=== PATIENT | male | born 1960 | race Caucasian/White ===

== ENCOUNTER 2016-10-10 19:44 | Observation (INO) | payer OTHER ==
[2016-10-10] MEDS ORDERED: Zofran 4 MG/2 ML VIAL IV ONE (20:05)
[2016-10-10] MEDS ORDERED: Nitrostat 0.4 MG (ED) SL ONE ×2 (20:05→20:14)
[2016-10-10] MEDS ORDERED: Zofran 4 MG/2 ML VIAL ONE (20:13)
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
[2016-10-10] MEDS ORDERED: Sodium Chloride 0.9% 1000 ML 1,000 ML ONE (20:14)
[2016-10-10] MEDS ORDERED: Sodium Chloride 0.9% 1000 ML 1,000 ML IV SCH ×2 (20:15→23:15)
[2016-10-10 20:18] LABS: BASOPHIL % 0.2 % (0.0-0.4); Eosinophil % 0.8 % (0.00-5.0); Granulocytes % 70.1 % (36.0-66.0); Mean Cell Volume 96.1 fl (78-100); Mean Corpuscular Hemoglobin 31.2 pg (26-32); Mean Platelet Volume 10.5 fl (6-9.5); Monocytes % 8.9 % (0.0-12.0); Platelet Count 270 K/mm3 (150-450); Red Blood Count 4.58 M/mm3 (4.1-5.6); Red Cell Distribution Width 14.2 % (11.5-14.0); White Blood Count 9.9 K/mm3 (4.0-10.5)
[2016-10-10 20:55] LABS: PROTIME 11.3 SECONDS (8.83-12.87)
[2016-10-10 21:00] LABS: ALBUMIN 3.6 g/dL (3.4-5.0); ANION GAP 11.6 MEQ/L (5-15); BILIRUBIN,TOTAL 1.1 mg/dL (0.2-1.0); Carbon Dioxide 24.7 mEq/L (21-32); Potassium 3.8 mEq/L (3.5-5.1); Total Protein 7.2 gm/dL (6.4-8.2)
[2016-10-10] MEDS ORDERED: NITRO-BID 2% UD PACKETS TOP ONE (21:05)
[2016-10-10] MEDS ORDERED: Phenergan 25 MG INJ IM ONE (21:05)
[2016-10-10] MEDS ORDERED: PROTONIX 40 MG IV IV ONE ×2 (21:06→21:18)
[2016-10-10] MEDS ORDERED: Phenergan 25 MG INJ ONE (21:18)
[2016-10-10] MEDS ORDERED: NITRO-BID 2% UD PACKETS ONE (21:18)
[2016-10-10] MEDS ORDERED: MAALOX ES 30 ML UNIT DOSE PO PRN (22:07)
[2016-10-10] MEDS ORDERED: TYLENOL 325 MG PO PRN (22:07)
[2016-10-10] MEDS ORDERED: Zofran 4 MG/2 ML VIAL IV PRN (22:07)
[2016-10-10] MEDS ORDERED: Nitrostat 0.4 MG Tablet SL PRN (22:07)
[2016-10-10] MEDS ORDERED: NovoLOG Insulin SQ PRN (22:07)
[2016-10-10] MEDS ORDERED: Senokot-S Tablet PO PRN (22:07)
[2016-10-10] MEDS ORDERED: SYNTHROID 100 MCG PO SCH (22:15)
[2016-10-11] MEDS: Phenergan 25 MG INJ IV PRN ×3 (01:43→10:55)
[2016-10-11] MEDS ORDERED: Ambien 10 MG PO SCH (01:45)
[2016-10-11] MEDS ORDERED: NITRO-BID 2% UD PACKETS TOP SCH (06:00)
--- NOTE | 2016-10-11 08:54 | XRAY ---
Indication: Chest pain. Comparison: April 27, 2015. Portable chest demonstrates new subtle left base infiltrate/atelectasis. Remaining right lung and heart unremarkable. Bony thorax intact again with osteopenia, degenerative changes, sternotomy wires, and partially visualized right humeral orthopedic rods.
[2016-10-11] MEDS ORDERED: Lomotil PO PRN (09:27)
[2016-10-11] MEDS ORDERED: MEPERIDINE HCL PO PRN (09:27)
[2016-10-11] MEDS ORDERED: ONDANSETRON HCL PO PRN (09:27)
[2016-10-11] MEDS ORDERED: PHENERGAN 25 MG PO PRN (09:27)
[2016-10-11] MEDS ORDERED: NON-FORMULARY ITEM (Prochlorperazine Maleate 10 Mg [Compazine 10 Mg] 10 MG) PO PRN (09:27)
[2016-10-11] MEDS ORDERED: NovoLOG Insulin SQ SCH (09:30)
[2016-10-11 09:32] LABS: TROPONIN 0.093 ng/ml (0.000-0.056)
[2016-10-11] MEDS ORDERED: ZOFRAN ODT 4 MG PO PRN (09:40)
[2016-10-11] MEDS ORDERED: Compazine 5 MG PO PRN (09:41)
[2016-10-11] MEDS ORDERED: MEDICATION INTERVENTION MC PRN (09:48)
[2016-10-11] MEDS ORDERED: Lasix 40 MG PO SCH (10:00)
[2016-10-11] MEDS ORDERED: REGLAN SOLUTION 5 MG/5 ML PO SCH (10:00)
[2016-10-11] MEDS ORDERED: Toprol Xl 50 MG PO SCH (10:00)
[2016-10-11] MEDS ORDERED: Pepcid 20 MG PO SCH (10:00)
[2016-10-11] MEDS ORDERED: NON-FORMULARY ITEM (Ranitidine Hcl [Zantac] 150 MG) PO SCH (10:00)
[2016-10-11] MEDS ORDERED: PLAVIX 75 MG Tablet PO SCH (10:00)
[2016-10-11] MEDS ORDERED: SYNTHROID 112 MCG PO SCH (10:00)
[2016-10-11] MEDS ORDERED: Toprol-Xl 25MG Tablets PO SCH (10:00)
[2016-10-11] MEDS ORDERED: Cozaar 50 MG PO SCH (10:00)
[2016-10-11] MEDS ORDERED: Zetia 10 MG PO SCH (10:00)
[2016-10-11] MEDS: MORPHINE SULFATE 2 MG INJ IV PRN ×2 (10:11→12:23)
--- NOTE | 2016-10-11 10:22 | HP ---
CHIEF COMPLAINT: Nausea and vomiting. HISTORY OF PRESENT ILLNESS: The patient is a 56 year-old white male patient who reports that he has been having trouble with epigastric pain and nausea for the past two weeks. He had seen me last and had set up gallbladder ultrasound. He saw his staff field engineer on Monday who again wanted the ultrasound performed and made no changes otherwise. The patient reports that since that Monday visit he has had retching, vomiting with no change in his bowels. Over the past three days he finally presented himself to the emergency room and was admitted to the hospital for further evaluation and management. PAST MEDICAL/SURGICAL HISTORY: Significant for coronary artery bypass grafting. He reports a stent ten times. He has diabetes mellitus type 1. He has had surgeries on his left femur and right shoulder. HOME MEDICATIONS: Plavix 75 mg daily, Lomotil PRN, [place] at night, Synthroid 100 mcg daily, losartan 25 mg a day, Demerol 100 mg at night PRN for pain, metoprolol 50 mg daily, niacin 500 mg, pantoprazole 40 mg, Mirapex 0.5 mg at night, Zantac 150 mg daily, Zetia 10 mg a day. ALLERGIES: CODEINE, LEVAQUIN, PENICILLIN, SULFA. PHYSICAL EXAMINATION: Revealed a mildly obese white male patient currently nauseated holding onto emesis bag which is empty. His vital signs showed O2 saturation 92% on room air. His temperature 97.5F, pulse 70, respiratory rate 16, blood pressure 137/70. HEENT: Normocephalic, atraumatic. Pupils equal round reactive to light. Extraocular movements intact. He is wearing oxygen per nasal cannula. His oropharynx is dry. NECK: Supple without lymphadenopathy, thyromegaly or JVD. CHEST: Clear to auscultation. HEART: He has a trigeminy rhythm when he first came in and otherwise he has been in sinus rhythm. ABDOMEN: Soft, somewhat tender in the epigastric region. No palpable masses were felt. EXTREMITIES: Without clubbing, cyanosis or edema. NEUROLOGIC: The patient is alert and oriented x3. No focal deficits are noted. LAB DATA AND TESTS: The patient's EKG showed the trigeminy, left axis deviation is present. The chest x-ray showed atelectasis versus infiltrate in the left base. His laboratory studies otherwise had shown international normalized ratio to be 1.0. His metabolic panel showed a nonfasting glucose of 223, BUN 12, creatinine 1.49. Electrolytes and liver enzymes were normal. Amylase and lipase were not elevated. His CBC is normal with hemoglobin 14.3, white blood cell count 9,900, PLT count 270,000. He had intermediately high troponin at 0.029 on admission with up to 0.056 being normal in our lab. ASSESSMENT: A patient with persistent nausea and vomiting. He is being admitted for IV fluid hydration and further evaluation. We will obtain serial enzymes on his troponins to rule out any cardiac reasons for his problem as well. He will be maintained on his usual home medications if he is able to take them p.o. We will place him on sliding scale coverage for his insulin since he has been unable to eat.
--- NOTE | 2016-10-11 10:52 | XRAY ---
Indication: Pain, nausea, and vomiting 6-8 weeks. Two-dimensional right upper quadrant abdominal sonogram performed. Comparison: None Sonogram technically difficult due to patient body habitus. Pancreas not well seen. Gallbladder appears normally distended without gallstones, wall thickening, or pericholecystic fluid. Common bile duct measures 2.7 mm. No intrahepatic biliary distention. Visuals portions of the liver homogeneous. No ascites. Right kidney measures 11.8 cm in length and appears sonographically normal. Impression: Limited exam due to body habitus. Pancreas not well seen. Remaining gallbladder sonogram is negative.
[2016-10-11 11:26] VITALS: BP 142/65; PULSE 75; O2SAT 97
[2016-10-11] MEDS ORDERED: Reglan 10 MG PO SCH (11:30)
[2016-10-11] MEDS ORDERED: Tricor 145 MG PO SCH (22:00)
[2016-10-11] MEDS ORDERED: FENOFIBRIC ACID 45 MG PO SCH (22:00)
[2016-10-11] MEDS ORDERED: Protonix 40MG Tablet PO SCH (22:00)
[2016-10-11] MEDS ORDERED: NON-FORMULARY ITEM (Pramipexole Di-Hcl [Mirapex] 1 MG) PO SCH (22:00)
[2016-10-11] MEDS ORDERED: Mirapex 0.5 MG Tablet PO SCH (22:00)
--- NOTE | 2016-10-14 13:01 | ECHO ---
THIS REPORT WAS AMENDED ON 10/17/16. DATE: 10/11/16 INDICATION: Chest pain. The echocardiogram is technically difficult due to body habitus. The left ventricle is normal in size at 5.1 cm. Left ventricular apex is not well visualized. The septum is thickened at 1.4 cm. The left ventricular posterior wall thickness is increased at 1.7 cm. The left ventricular systolic function is mildly decreased with an ejection fraction calculated at 48%. There is diffuse hypokinesis present. The right ventricle is not well visualized. The left atrium is moderately dilated with the dimension of 5.0 cm. The interatrial septum is intact. The right atrium is normal in size. The aortic valve opens well and is a trileaflet valve. There is mitral valvular calcification associated with mild mitral regurgitation present. There is mild tricuspid regurgitation with the right ventricular systolic pressure being calculated to be normal. The pulmonic valve is not well visualized. The aortic root is normal at 3.4 cm. There is no pericardial effusion present. IMPRESSION: 1. TECHNICALLY DIFFICULT ECHOCARDIOGRAM. 2. MILD LEFT VENTRICULAR SYSTOLIC DYSFUNCTION. 3. MODERATE LEFT ATRIAL DILATATION. 4. MODERATE ASYMMETRIC LEFT VENTRICULAR HYPERTROPHY. 5. MILD TRICUSPID REGURGITATION. 6. MILD MITRAL REGURGITATION.
== END 2016-10-11 13:55 ==
LOC: ED 19:44 → MED SURG 22:36
PROVIDERS: ADMIT Family Medicine; ATTEND Family Medicine
DX: R07.9 Chest pain, unspecified (principal); R11.2 Nausea with vomiting, unspecified; E10.9 Type 1 diabetes mellitus without complications; I25.810 Atherosclerosis of coronary artery bypass graft(s) without angina pectoris; I10 Essential (primary) hypertension; R79.89 Other specified abnormal findings of blood chemistry; Z79.899 Other long term (current) drug therapy
CPT/HCPCS: 36000; 36415; 71010; 76705; 80053; 80061; 82150; 82962; 83690; 83721; 84484; 85025; 85610; 93005; 93268; 93306; 94760; 96360; 96361; 96372; 96374; 96375; 99285; G0378; J2270; J2405; J2550; A9270-GY

== ENCOUNTER 2020-08-18 14:25 | Emergency (ER) | payer MEDICAID ==
[2020-08-18] MEDS ORDERED: DUONEB 0.5-3 MG/3 ml Neb IH ONE ×2 (14:57→17:11)
--- NOTE | 2020-08-18 15:20 | ERPHSYRPT ---
- History of Present Illness Time Seen by Provider: 08/18/20 14:44 Source: patient Exam Limitations: no limitations Patient Subjective Stated Complaint: Pt states "I have had this problem before, but my wanted me to come get checked. I cough for about 30 minutes after I eat or drink anything. I have had to have my esophagus stretched before and I think I need it again." Triage Nursing Assessment: Pt presented alert and oriented X 3, skin pwd. Pt ambulates with a slow shuffling gait, assisted by a cane. Pt stated he gets assistance with anything he does. Pt in no apparent respiratory distress. PT speaks in clear full sentences. Physician History: 60 years old male with multiple medical problems including artery disease status post CABG, diabetes mellitus, hypertension, congestive heart failure who was re cently discharged from [facility] for uncontrolled blood sugar presented in the ER with almost 1 week history of increasing cough. Patient reports he does have history of esophageal stricture needing stretching in the past and for almost 1 week he has episodes/bouts of coughing lasting for almost 30 minutes after eating or drinking to the point that he feels as if he is choking. No increasing shortness of breath than usual. No chest pain palpitations. Denies any abdominal pain. Does have bilateral lower extremity swelling which is not any worse than usual. Denies any fever or chills. Timing/Duration: week(s), intermittent, worse Cough Quality/Degree: moderate, dry cough Possible Cause: occasional episodes Modifying Factors: Improves With: other (Eating) Associated Symptoms: cough, shortness of breath (Chronic) Allergies/Adverse Reactions: levofloxacin [From Levaquin] Allergy (Verified 10/10/16 19:53) Penicillins Allergy (Verified 10/10/16 19:53) Sulfa (Sulfonamide Antibiotics) Allergy (Verified 10/10/16 19:53) Home Medications: Clopidogrel Bisulfate 75 mg [PLAVIX 75 MG Tablet] 75 mg PO DAILY 04/27/15 [History] Diphenoxylate HCl/Atropine [Lomotil 2.5-0.025 mg Tablet] 1 each PO DAILY PRN PRN 04/27/15 [History] Niacin 500 mg [Niaspan 500 mg] 500 mg PO DAILY 04/27/15 [History] Furosemide [Lasix] 80 mg PO BID 10/11/16 [History] Insulin Aspart [NovoLOG Insulin] 1 unit SQ UD 10/11/16 [History] Levothyroxine Sodium 112 Mcg [Synthroid 112 Mcg] 112 mcg PO DAILY 10/11/16 [History] Metoclopramide HCl 5 mg/5 ml [Reglan Solution 5 mg/5 ml] 10 mg PO QID 10/11/16 [History] Ondansetron HCl [Zofran] 12 mg PO Q4H PRN PRN 10/11/16 [History] Pramipexole Di-HCl [Mirapex] 1 mg PO HS 10/11/16 [History] Promethazine HCl 25 mg [Phenergan 25 mg] 25 mg PO Q8H PRN PRN 10/11/16 [History] ALPRAZolam [Alprazolam] 1 mg PO DAILY 08/18/20 [History] Aspirin 81 mg PO DAILY 08/18/20 [History] Atorvastatin Calcium [Lipitor] 40 mg PO DAILY 08/18/20 [History] Doxycycline Hyclate 100 mg [Vibramycin 100 MG] 100 mg PO DAILY 08/18/20 [History] Glucagon [Baqsimi] 3 mg NS DAILY PRN 08/18/20 [History] Isosorbide Mononitrate 30 mg [Imdur 30 MG] 30 mg PO DAILY 08/18/20 [History] Potassium Chloride [Klor-Con M10] 10 meq PO DAILY 08/18/20 [History] Tamsulosin HCl 0.4 mg [Flomax 0.4 MG] 0.4 mg PO DAILY 08/18/20 [History] Hx Tetanus, Diphtheria Vaccination/Date Given: Yes Hx Influenza Vaccination/Date Given: Yes Hx Pneumococcal Vaccination/Date Given: Yes Immunizations Up to Date: Yes Travel Risk - International Travel Have you traveled outside of the country in past 3 weeks: No - Coronavirus Screening Are you exhibiting any of the following symptoms?: No Close contact with a COVID-19 positive Pt in past 14-21 Days: No - Vaccine Status Have you recieved a Covid-19 vaccination: Yes 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: [employer] - Vaccination Dates Date of 2cond Vaccination (if applicable): 05/2020 - Review of Systems Constitutional: No Symptoms Eyes: No Symptoms Ears, Nose, & Throat: Sinus Drainage Respiratory: Cough Cardiac: Edema Abdominal/Gastrointestinal: No Symptoms Genitourinary Symptoms: No Symptoms Skin: No Symptoms Neurological: No Symptoms Psychological: No Symptoms Endocrine: No Symptoms Hematologic/Lymphatic: No Symptoms Immunological/Allergic: No Symptoms - Past Medical History Pertinent Past Medical History: Yes Neurological History: No Pertinent History ENT History: No Pertinent History Cardiac History: Angina, Arrhythmia, Coronary Artery Disease, High Cholesterol, Hypertension Respiratory History: No Pertinent History Endocrine Medical History: Diabetes Type I Musculoskeletal History: Arthritis, Fractures GI Medical History: Irritable Bowel History: No Pertinent History Psycho-Social History: Anxiety Male Reproductive Disorders: No Pertinent History Other Medical History: R GREAT TOE FRACTURE. - Past Surgical History Past Surgical History: Yes Neuro Surgical History: No Pertinent History Cardiac: CABG, Cardiac Catheterization Respiratory: No Pertinent History Gastrointestinal: Appendectomy Genitourinary: No Pertinent History Musculoskeletal: No Pertinent History Male Surgical History: No Pertinent History Other Surgical History: LAZER TREATMENTS IN R EYE, LEFT FEMUR AND RIGHT SHOULDER SURG - Social History Smoking Status: Never smoker Exposure to second hand smoke: No Drug Use: none Patient Lives Alone: No - Nursing Vital Signs Nursing Vital Signs: Initial Vital Signs Temperature 97.3 F 08/18/20 14:37 Pulse Rate 60 08/18/20 14:37 Respiratory Rate 20 08/18/20 14:37 Blood Pressure 104/43 08/18/20 14:37 O2 Sat by Pulse Oximetry 94 L 08/18/20 14:37 Pain Scale Pain Intensity 0 - Physical Exam General Appearance: no apparent distress, alert, anxiety Eye Exam: PERRL/EOMI, eyes nml inspection Ears, Nose, Throat Exam: TMs normal, pharyngeal erythema Neck Exam: normal inspection, non-tender, supple, full range of motion Respiratory Exam: normal breath sounds, lungs clear Cardiovascular Exam: regular rate/rhythm, normal heart sounds Gastrointestinal/Abdomen Exam: soft, normal bowel sounds, No tenderness Back Exam: normal inspection, normal range of motion Extremity Exam: normal inspection, normal range of motion, pedal edema Neurologic Exam: alert, oriented x 3, cooperative Skin Exam: normal color SpO2 Interpretation: normal SpO2: 94 O2 Delivery: Room Air - Course EKG Interpreted by Me: RATE (80), NORMAL AXIS, Left Bundle Branch Block, Other (PVCs, paced rhythm) Ordered Tests: Active Orders 24 hr Category Date Time Status 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 STAT Care 08/18/20 14:58 Completed EKG-ER Only STAT Care 08/18/20 14:57 Completed CHEST 1 VIEW (PORTABLE) Stat Exams 08/18/20 14:58 Completed BLOOD CULTURE Stat Lab 08/18/20 15:21 Received CBC W DIFF Stat Lab 08/18/20 14:57 Completed CMP Stat Lab 08/18/20 15:11 Completed MAGNESIUM Stat Lab 08/18/20 15:11 Completed NT PRO BNP Stat Lab 08/18/20 15:11 Completed TROPONIN Q3H Lab 08/18/20 15:11 Completed UA W/RFX UR CULTURE Stat Lab 08/18/20 16:27 Completed Medication Summary Discontinued Medications Generic Name Dose Route Start Last Admin Trade Name Freq PRN Reason Stop Dose Admin Albuterol/Ipratropium 3 ml 08/18/20 14:57 08/18/20 17:12 Duoneb 0.5-3 Mg/3 Ml Neb IH 08/18/20 14:58 3 ml STAT ONE Administration Albuterol/Ipratropium Confirm 08/18/20 17:11 Duoneb 0.5-3 Mg/3 Ml Neb Administered 08/18/20 17:12 Dose 3 ml IH .STK-MED ONE Lab/Rad Data: Laboratory Result Diagrams 08/18/20 14:57 08/18/20 15:11 Laboratory Results 08/18/20 08/18/20 08/18/20 Range/Units 16:27 15:11 15:11 WBC (4.0-10.5) K/mm3 RBC (4.1-5.6) M/mm3 Hgb (12.5-18.0) gm/dl Hct (42-50) % MCV (78-100) fl MCH (26-32) pg MCHC (32-36) g/dl RDW (11.5-14.0) % Plt Count (150-450) K/mm3 MPV (7.5-11.0) fl Gran % (36.0-66.0) % Eos # (Auto) (0-0.5) Absolute Lymphs (auto) (1.0-4.6) Absolute Monos (auto) (0.0-1.3) Lymphocytes % (24.0-44.0) % Monocytes % (0.0-12.0) % Eosinophils % (0.00-5.0) % Basophils % (0.0-0.4) % Absolute Granulocytes (1.4-6.9) Basophils # (0-0.4) Sodium 133 L (137-145) mmol/L Potassium 4.0 (3.5-5.1) mmol/L Chloride 95 L (98-107) mmol/L Carbon Dioxide 29 (22-30) mmol/L Anion Gap 12.7 (5-15) MEQ/L BUN 17 (9-20) mg/dL Creatinine 1.48 H (0.66-1.25) mg/dL Estimated GFR 51.2 ML/MIN Glucose 167 H (74-106) mg/dL Calcium 8.6 (8.4-10.2) mg/dL Magnesium 2.0 (1.6-2.3) mg/dL Total Bilirubin 1.20 (0.2-1.3) mg/dL AST 26 (17-59) U/L ALT 25 (0-50) U/L Alkaline Phosphatase 249 H (38-126) U/L Troponin I < 0.012 (0.000-0.034) ng/mL NT-Pro-B Natriuret Pep 597 (0-900) pg/mL Serum Total Protein 6.7 (6.3-8.2) g/dL Albumin 3.6 (3.5-5.0) g/dL Urine Color YELLOW (YELLOW) Urine Appearance CLEAR (CLEAR) Urine pH 6.0 (5-6) Ur Specific [place] 1.008 (1.005-1.025) Urine Protein NEGATIVE (Negative) Urine Ketones NEGATIVE (NEGATIVE) Urine Blood NEGATIVE (0-5) Minh/ul Urine Nitrite NEGATIVE (NEGATIVE) Urine Bilirubin NEGATIVE (NEGATIVE) Urine Urobilinogen NEGATIVE (0-1) mg/dL Ur Leukocyte Esterase NEGATIVE (NEGATIVE) Urine WBC (Auto) NONE (0-5) /HPF Urine RBC (Auto) NONE (0-2) /HPF U Epithel Cells (Auto) NONE (FEW) /HPF Urine Bacteria (Auto) NONE (NEGATIVE) /HPF Urine Culture Reflexed NO (NO) Urine Glucose NEGATIVE (NEGATIVE) mg/dL 08/18/20 Range/Units 14:57 WBC 15.6 H (4.0-10.5) K/mm3 RBC 3.92 L (4.1-5.6) M/mm3 Hgb 11.9 L (12.5-18.0) gm/dl Hct 38.4 L (42-50) % MCV 98.0 (78-100) fl MCH 30.4 (26-32) pg MCHC 31.0 L (32-36) g/dl RDW 15.1 H (11.5-14.0) % Plt Count 442 (150-450) K/mm3 MPV 10.0 (7.5-11.0) fl Gran % 85.0 H (36.0-66.0) % Eos # (Auto) 0.13 (0-0.5) Absolute Lymphs (auto) 1.05 (1.0-4.6) Absolute Monos (auto) 1.15 (0.0-1.3) Lymphocytes % 6.7 L (24.0-44.0) % Monocytes % 7.4 (0.0-12.0) % Eosinophils % 0.8 (0.00-5.0) % Basophils % 0.1 (0.0-0.4) % Absolute Granulocytes 13.29 H (1.4-6.9) Basophils # 0.02 (0-0.4) Sodium (137-145) mmol/L Potassium (3.5-5.1) mmol/L Chloride (98-107) mmol/L Carbon Dioxide (22-30) mmol/L Anion Gap (5-15) MEQ/L BUN (9-20) mg/dL Creatinine (0.66-1.25) mg/dL Estimated GFR ML/MIN Glucose (74-106) mg/dL Calcium (8.4-10.2) mg/dL Magnesium (1.6-2.3) mg/dL Total Bilirubin (0.2-1.3) mg/dL AST (17-59) U/L ALT (0-50) U/L Alkaline Phosphatase (38-126) U/L Troponin I (0.000-0.034) ng/mL NT-Pro-B Natriuret Pep (0-900) pg/mL Serum Total Protein (6.3-8.2) g/dL Albumin (3.5-5.0) g/dL Urine Color (YELLOW) Urine Appearance (CLEAR) Urine pH (5-6) Ur Specific [place] (1.005-1.025) Urine Protein (Negative) Urine Ketones (NEGATIVE) Urine Blood (0-5) Minh/ul Urine Nitrite (NEGATIVE) Urine Bilirubin (NEGATIVE) Urine Urobilinogen (0-1) mg/dL Ur Leukocyte Esterase (NEGATIVE) Urine WBC (Auto) (0-5) /HPF Urine RBC (Auto) (0-2) /HPF U Epithel Cells (Auto) (FEW) /HPF Urine Bacteria (Auto) (NEGATIVE) /HPF Urine Culture Reflexed (NO) Urine Glucose (NEGATIVE) mg/dL - Progress Progress: improved, re-examined Air Movement: good Progress Note: 08/18/20 16:49 60 years old is evaluated for repeated bouts of coughing. Patient is not short of breath and maintaining oxygen saturation around 97% on room air without any signs of distress. Has white count of 15, chemistry profile at baseline. Normal troponins. Patient is currently on doxycycline for foot/leg infection. Chest x-ray showed questionable new infiltrative process in the right lower lung. I have recommended IV antibiotic and observation admission but patient does not want to stay in the hospital at all. Patient states "I am doing fine and want to go home, will return if anything worsens". I would start him on Z- Ramirez as patient is allergic to multiple other stuff. I would also give him albuterol inhaler and recommended continue with PPIs and outpatient follow-up with his GI as his cough has some element of esophageal strictures. Discussed signs symptoms of worsening needing return to ER which he seems understanding Antibiotics given: Yes Counseled pt/family regarding: lab results, diagnosis, need for follow-up, rad results - Departure Departure Disposition: Home Clinical Impression: Bronchitis, GERD with esophagitis Condition: Stable Critical Care Time: No Referrals: VINCE FONG [Primary Care Provider] - (1-2 days for reevaluation) Instructions: Acute Bronchitis Additional Instructions: Follow-up with your primary care for reevaluation. Also follow-up with your GI for possible restretching of your esophagus. Take soft/pured diet to avoid obstruction/aspiration. Use inhaler as needed. Return to ER for worsening cough or if develop fever chills/shortness of breath. Prescriptions: PANTOPRAZOLE 40 mg Tablet [Protonix 40MG Tablet] 40 mg PO QAM #30 tab Albuterol 8 gm Mdi Hfa [Ventolin Hfa MDI] 8 gm IH Q4H #1 [email or web address] Azithromycin 250 mg [Zithromax 250 MG TABLET] 250 mg PO ZPACK #6 tablet
[2020-08-18 15:29] LABS: Absolute Neutrophil Ct (ANC) 13.29 (1.4-6.9); BASOPHIL % 0.1 % (0.0-0.4); Basophil (Absolute #) 0.02 (0-0.4); Eosinophil % 0.8 % (0.00-5.0); Eosinophil (Absolute #) 0.13 (0-0.5); Hematocrit 38.4 % (42-50); Hemoglobin 11.9 gm/dl (12.5-18.0); Lymphocyte (Absolute #) 1.05 (1.0-4.6); Lymphocytes % 6.7 % (24.0-44.0); Mean Corpuscular Hemoglobin 30.4 pg (26-32); Monocyte (Absolute #) 1.15 (0.0-1.3); Monocytes % 7.4 % (0.0-12.0); Platelet Count 442 K/mm3 (150-450); Red Blood Count 3.92 M/mm3 (4.1-5.6); Red Cell Distribution Width 15.1 % (11.5-14.0); White Blood Count 15.6 K/mm3 (4.0-10.5)
[2020-08-18 15:52] LABS: ALBUMIN 3.6 g/dL (3.5-5.0); ANION GAP 12.7 MEQ/L (5-15); BILIRUBIN,TOTAL 1.2 mg/dL (0.2-1.3); Calcium 8.6 mg/dL (8.4-10.2); Creatinine 1 1.48 mg/dL (0.66-1.25); EST GLOMERULAR FILTRATION RATE 51.2 ML/MIN; Total Protein 6.7 g/dL (6.3-8.2)
--- NOTE | 2020-08-18 16:26 | XRAY ---
Indication: Cough. Comparison: October 10, 2016. Portable chest demonstrates new right base infiltrate versus atelectasis. Remaining left lung unremarkable. Heart not enlarged again with CABG surgery and new left dual-lead pacemaker. Bony thorax intact again with osteopenia, degenerative changes, and partially visualized right humeral orthopedic rods. Impression: New right base infiltrate versus atelectasis.
[2020-08-18 16:37] LABS: Appearance CLEAR (CLEAR); Bilirubin NEGATIVE (NEGATIVE); Blood NEGATIVE Ery/ul (0-5); Glucose NEGATIVE (NEGATIVE); Ketones NEGATIVE (NEGATIVE); Leukocyte Esterase NEGATIVE (NEGATIVE); Nitrite NEGATIVE (NEGATIVE); Protein,Urine Dip NEGATIVE (Negative); Specific Gravity 1.008 (1.005-1.025); Urobilinogen NEGATIVE mg/dL (0-1)
[2020-08-18 17:20] VITALS: BP 108/54; PULSE 72
[2020-08-19 00:59] VITALS: O2SAT 94
== END 2020-08-18 17:31 | disposition home or self-care (01) ==
LOC: ED 14:25
DX: J40 Bronchitis, not specified as acute or chronic (principal); K21.00 Gastro-esophageal reflux disease with esophagitis, without bleeding
CPT/HCPCS: 36415; 71045; 80053; 81001; 83735; 83880; 84484; 85025; 87040; 93005; 93041; 94640; 99284; A9270-GY

== ENCOUNTER 2020-11-14 14:01 | Emergency (ER) | payer MEDICAID ==
[2020-11-14 14:50] LABS: Absolute Neutrophil Ct (ANC) 6.56 (1.4-6.9); BASOPHIL % 0.2 % (0.0-0.4); Basophil (Absolute #) 0.02 (0-0.4); Eosinophil % 0.7 % (0.00-5.0); Eosinophil (Absolute #) 0.07 (0-0.5); Hematocrit 42.3 % (42-50); Hemoglobin 13.7 gm/dl (12.5-18.0); Lymphocyte (Absolute #) 1.76 (1.0-4.6); Lymphocytes % 18.6 % (24.0-44.0); Mean Cell Volume 95.7 fl (78-100); Mean Corpuscular Hgb Concent. 32.4 g/dl (32-36); Mean Platelet Volume 9.7 fl (7.5-11.0); Monocyte (Absolute #) 1.06 (0.0-1.3); Monocytes % 11.2 % (0.0-12.0); Neutrophil % 69.3 % (36.0-66.0); Platelet Count 231 K/mm3 (150-450); Red Blood Count 4.42 M/mm3 (4.1-5.6); Red Cell Distribution Width 14.7 % (11.5-14.0); White Blood Count 9.5 K/mm3 (4.0-10.5)
--- NOTE | 2020-11-14 14:58 | ERPHSYRPT ---
- History of Present Illness Time Seen by Provider: 11/14/20 14:07 Source: patient, EMS Exam Limitations: no limitations Patient Subjective Stated Complaint: "I took 25 extra units of my fast acting to kill myself because my is driving me nuts. She has been a nurse for years but she acts likes she doesn't know how to use this pump.". pt disconnected pump at home and left it there prior to coming in. Triage Nursing Assessment: pt to ED by EMS c/o SI. pt gave self 25 extra units of novalog in attempt to end his life. pt states he was suicidal at that time but is not now. "I just want my sugar addressed then I want to go." RN explained to pt that since he attempted to end his life that must also be addressed. pt became angry after he was told he could not sign out of the hospital d/t SI. pt states "Thats fine I will just do it again when I get home then whenever I do get out of here." RN attempted to continue to assess pt and pt states "I am not answering questions." Physician History: 60 years old male with multiple medical problems including coronary artery disease status post CABG, diabetes mellitus insulin-dependent, hypertension, hyperlipidemia, anxiety presented in the ER by EMS after he took 25 units of Humalog almost 30 minutes prior to arrival. Patient reports his insulin pump is not working properly and his who is an RN is driving him nuts and he is frustrated and took 25 extra pills to make an end of his life. This was the initial patient statement but later on he states that he did it because he is frustrated and does not want to kill himself. Patient also reported to RN that once he is out of the hospital he will do it again. His blood sugar before he took insulin was in 400s and currently in 160s. He denies any chest pain palpitations or shortness of breath. Denies overdose on any other medications. Denies any psychiatric admissions in the past. Timing/Duration: today Severity: moderate Allergies/Adverse Reactions: levofloxacin [From Levaquin] Allergy (Verified 11/14/20 14:31) Penicillins Allergy (Verified 11/14/20 14:31) Sulfa (Sulfonamide Antibiotics) Allergy (Verified 11/14/20 14:31) Home Medications: Clopidogrel Bisulfate 75 mg [PLAVIX 75 MG Tablet] 75 mg PO DAILY 04/27/15 [History] Diphenoxylate HCl/Atropine [Lomotil 2.5-0.025 mg Tablet] 1 each PO DAILY PRN PRN 04/27/15 [History] Niacin 500 mg [Niaspan 500 mg] 500 mg PO DAILY 04/27/15 [History] Furosemide [Lasix] 40 mg PO TID 10/11/16 [History] Insulin Aspart [NovoLOG Insulin] 1 unit SQ UD 10/11/16 [History] Levothyroxine Sodium 112 Mcg [Synthroid 112 Mcg] 150 mcg PO DAILY 10/11/16 [History] Ondansetron HCl [Zofran] 12 mg PO Q4H PRN PRN 10/11/16 [History] Pramipexole Di-HCl [Mirapex] 1 mg PO HS 10/11/16 [History] Promethazine HCl 25 mg [Phenergan 25 mg] 25 mg PO Q4H PRN PRN 10/11/16 [History] ALPRAZolam [Alprazolam] 1 mg PO DAILY 08/18/20 [History] Aspirin 81 mg PO DAILY 08/18/20 [History] Atorvastatin Calcium [Lipitor] 40 mg PO DAILY 08/18/20 [History] Glucagon [Baqsimi] 3 mg NS DAILY PRN 08/18/20 [History] Isosorbide Mononitrate 30 mg [Imdur 30 MG] 30 mg PO DAILY 08/18/20 [History] Tamsulosin HCl 0.4 mg [Flomax 0.4 MG] 0.4 mg PO DAILY 08/18/20 [History] ALPRAZolam [Alprazolam] 0.5 mg PO Q8H PRN 11/14/20 [History] Benzonatate 100 mg PO TID PRN 11/14/20 [History] Diphenhydramine HCl 25 mg [Benadryl 25 mg Capsule] 50 mg PO Q4H 11/14/20 [History] Docusate Sodium 100 mg [Colace 100 MG] 100 mg PO BID 11/14/20 [History] Ergocalciferol (Vitamin D2) [Vitamin D2] 1.25 mg PO WEEKLY 11/14/20 [History] Famotidine [Pepcid] 40 mg PO DAILY 11/14/20 [History] Metoclopramide HCl 10 mg [Reglan 10 MG] 10 mg PO TID 11/14/20 [History] Nitroglycerin 0.4 mg SL DAILY PRN 11/14/20 [History] carvediloL [Carvedilol] 25 mg PO BID 11/14/20 [History] Hx Tetanus, Diphtheria Vaccination/Date Given: Yes Hx Influenza Vaccination/Date Given: Yes Hx Pneumococcal Vaccination/Date Given: Yes Immunizations Up to Date: Yes Travel Risk - International Travel Have you traveled outside of the country in past 3 weeks: No ("I am not answering questions.") - Coronavirus Screening Are you exhibiting any of the following symptoms?: No Close contact with a COVID-19 positive Pt in past 14-21 Days: No - Vaccine Status Have you recieved a Covid-19 vaccination: No ("I am not answering questions.") 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: [employer] - Vaccination Dates Date of 2cond Vaccination (if applicable): 05/2020 - Review of Systems Constitutional: No Symptoms Eyes: No Symptoms Ears, Nose, & Throat: No Symptoms Respiratory: No Symptoms Cardiac: No Symptoms Abdominal/Gastrointestinal: No Symptoms Genitourinary Symptoms: No Symptoms Musculoskeletal: No Symptoms Skin: No Symptoms Neurological: No Symptoms Psychological: Anxiety, Suicidal Ideations, No Hallucinations, No Memory Loss Endocrine: No Symptoms Hematologic/Lymphatic: No Symptoms Immunological/Allergic: No Symptoms - Past Medical History Pertinent Past Medical History: Yes Neurological History: No Pertinent History ENT History: No Pertinent History Cardiac History: Angina, Arrhythmia, Coronary Artery Disease, High Cholesterol, Hypertension Respiratory History: No Pertinent History Endocrine Medical History: Diabetes Type I Musculoskeletal History: Arthritis, Fractures GI Medical History: Irritable Bowel History: No Pertinent History Psycho-Social History: Anxiety Male Reproductive Disorders: No Pertinent History Other Medical History: R GREAT TOE FRACTURE. - Past Surgical History Past Surgical History: Yes Neuro Surgical History: No Pertinent History Cardiac: CABG, Cardiac Catheterization Respiratory: No Pertinent History Gastrointestinal: Appendectomy Genitourinary: No Pertinent History Musculoskeletal: No Pertinent History Male Surgical History: No Pertinent History Other Surgical History: LAZER TREATMENTS IN R EYE, LEFT FEMUR AND RIGHT SHOULDER SURG - Social History Smoking Status: Never smoker Exposure to second hand smoke: No Drug Use: none Patient Lives Alone: No - Nursing Vital Signs Nursing Vital Signs: Initial Vital Signs Temperature 97.2 F 11/14/20 14:09 Pulse Rate 69 11/14/20 14:09 Respiratory Rate 18 11/14/20 14:09 Blood Pressure 142/63 11/14/20 14:09 O2 Sat by Pulse Oximetry 97 11/14/20 14:09 Pain Scale Pain Intensity 0 - Physical Exam General Appearance: no apparent distress, alert Eye Exam: PERRL/EOMI Ears, Nose, Throat Exam: normal ENT inspection, pharynx normal Neck Exam: normal inspection, non-tender, supple, full range of motion Respiratory Exam: normal breath sounds, lungs clear Cardiovascular Exam: regular rate/rhythm, tachycardia, edema Gastrointestinal/Abdomen Exam: soft, No tenderness Extremity Exam: normal inspection, normal range of motion, pedal edema Neurologic Exam: alert, oriented x 3, cooperative, board handler II-XII nml as tested, nml cerebellar function, sensation nml, No normal mood/affect (Depressed), No motor deficits, No sensory deficit Skin Exam: normal color SpO2 Interpretation: normal SpO2: 97 O2 Delivery: Room Air - Course EKG Interpreted by Me: RATE (70. Atrial paced), NORMAL AXIS, NORMAL INTERVALS, Non-specific ST Changes, Other (PVCs, nonspecific T wave changes. Nonspecific intraventricular conduction delay) Ordered Tests: Medication Summary Discontinued Medications Generic Name Dose Route Start Last Admin Trade Name Luchoq PRN Reason Stop Dose Admin Carvedilol 25 mg 11/15/20 10:00 11/15/20 00:16 Coreg 12.5 Mg PO 12/15/20 09:59 Not Given BID KARI Diphenhydramine HCl 50 mg 11/15/20 00:07 11/15/20 00:14 Benadryl 25 Mg Capsule PO 11/15/20 00:08 Not Given STAT ONE Docusate Sodium 100 mg 11/15/20 22:00 11/15/20 00:15 Colace 100 Mg PO 12/15/20 21:59 Not Given HS KARI Furosemide 40 mg 11/15/20 00:07 11/15/20 00:14 Lasix 40 Mg PO 11/15/20 00:08 Not Given STAT ONE Insulin Human Regular 4 unit 11/15/20 03:27 11/15/20 03:31 Humulin R SQ 11/15/20 03:28 4 unit STAT ONE Administration Insulin Human Regular Confirm 11/15/20 03:30 Humulin R Administered 11/15/20 03:31 Dose 4 unit .ROUTE .STK-MED ONE Metoclopramide HCl 10 mg 11/15/20 00:10 11/15/20 00:15 Reglan 10 Mg PO 11/15/20 00:11 Not Given ONCE ONE Ondansetron HCl 4 mg 11/14/20 22:49 11/14/20 22:54 Zofran 4 Mg/2 Ml Vial IV 11/14/20 22:50 4 mg STAT ONE Administration Ondansetron HCl Confirm 11/14/20 22:53 Zofran 4 Mg/2 Ml Vial Administered 11/14/20 22:54 Dose 4 mg .ROUTE .STK-MED ONE Pramipexole Dihydrochloride 1 mg 11/15/20 00:10 11/15/20 00:15 Mirapex 0.5 Mg Tablet PO 11/15/20 00:11 Not Given ONCE ONE Lab/Rad Data: Laboratory Result Diagrams 11/14/20 14:45 11/14/20 14:45 Laboratory Results 11/15/20 11/14/20 11/14/20 Range/Units 02:52 21:25 17:16 WBC (4.0-10.5) K/mm3 RBC (4.1-5.6) M/mm3 Hgb (12.5-18.0) gm/dl Hct (42-50) % MCV (78-100) fl MCH (26-32) pg MCHC (32-36) g/dl RDW (11.5-14.0) % Plt Count (150-450) K/mm3 MPV (7.5-11.0) fl Gran % (36.0-66.0) % Eos # (Auto) (0-0.5) Absolute Lymphs (auto) (1.0-4.6) Absolute Monos (auto) (0.0-1.3) Lymphocytes % (24.0-44.0) % Monocytes % (0.0-12.0) % Eosinophils % (0.00-5.0) % Basophils % (0.0-0.4) % Absolute Granulocytes (1.4-6.9) Basophils # (0-0.4) Sodium (137-145) mmol/L Potassium (3.5-5.1) mmol/L Chloride (98-107) mmol/L Carbon Dioxide (22-30) mmol/L Anion Gap (5-15) MEQ/L BUN (9-20) mg/dL Creatinine (0.66-1.25) mg/dL Estimated GFR ML/MIN Glucose (74-106) mg/dL POC Glucometer 253 H (74 to 106) mg/dL Calcium (8.4-10.2) mg/dL Total Bilirubin (0.2-1.3) mg/dL AST (17-59) U/L ALT (0-50) U/L Alkaline Phosphatase (38-126) U/L Troponin I < 0.012 (0.000-0.034) ng/mL Serum Total Protein (6.3-8.2) g/dL Albumin (3.5-5.0) g/dL TSH 3rd Generation (0.47-4.68) mIU/L Urine Color (YELLOW) Urine Appearance (CLEAR) Urine pH (5-6) Ur Specific [place] (1.005-1.025) Urine Protein (Negative) Urine Ketones (NEGATIVE) Urine Blood (0-5) Minh/ul Urine Nitrite (NEGATIVE) Urine Bilirubin (NEGATIVE) Urine Urobilinogen (0-1) mg/dL Ur Leukocyte Esterase (NEGATIVE) Urine WBC (Auto) (0-5) /HPF Urine RBC (Auto) (0-2) /HPF U Epithel Cells (Auto) (FEW) /HPF Urine Bacteria (Auto) (NEGATIVE) /HPF Urine Mucus (Auto) (NEGATIVE) /HPF Urine Culture Reflexed (NO) Urine Glucose (NEGATIVE) mg/dL Salicylates (2-20) mg/dL Urine Opiates Level (NEGATIVE) Ur Methadone (NEGATIVE) Acetaminophen (10-30) ug/ml Urine Barbiturates (NEGATIVE) Ur Phencyclidine (PCP) (NEGATIVE) Urine Amphetamine (NEGATIVE) U Benzodiazepine Level (NEGATIVE) Urine Cocaine (NEGATIVE) Urine Marijuana (THC) (NEGATIVE) Ethyl Alcohol (0-10) mg/dL SARS-CoV-2 Ag (Rapid) NEGATIVE (NEGATIVE) 11/14/20 11/14/20 11/14/20 Range/Units 15:44 15:44 15:31 WBC (4.0-10.5) K/mm3 RBC (4.1-5.6) M/mm3 Hgb (12.5-18.0) gm/dl Hct (42-50) % MCV (78-100) fl MCH (26-32) pg MCHC (32-36) g/dl RDW (11.5-14.0) % Plt Count (150-450) K/mm3 MPV (7.5-11.0) fl Gran % (36.0-66.0) % Eos # (Auto) (0-0.5) Absolute Lymphs (auto) (1.0-4.6) Absolute Monos (auto) (0.0-1.3) Lymphocytes % (24.0-44.0) % Monocytes % (0.0-12.0) % Eosinophils % (0.00-5.0) % Basophils % (0.0-0.4) % Absolute Granulocytes (1.4-6.9) Basophils # (0-0.4) Sodium (137-145) mmol/L Potassium (3.5-5.1) mmol/L Chloride (98-107) mmol/L Carbon Dioxide (22-30) mmol/L Anion Gap (5-15) MEQ/L BUN (9-20) mg/dL Creatinine (0.66-1.25) mg/dL Estimated GFR ML/MIN Glucose (74-106) mg/dL POC Glucometer 211 H (74 to 106) mg/dL Calcium (8.4-10.2) mg/dL Total Bilirubin (0.2-1.3) mg/dL AST (17-59) U/L ALT (0-50) U/L Alkaline Phosphatase (38-126) U/L Troponin I (0.000-0.034) ng/mL Serum Total Protein (6.3-8.2) g/dL Albumin (3.5-5.0) g/dL TSH 3rd Generation (0.47-4.68) mIU/L Urine Color YELLOW (YELLOW) Urine Appearance CLEAR (CLEAR) Urine pH 5.0 (5-6) Ur Specific [place] 1.013 (1.005-1.025) Urine Protein NEGATIVE (Negative) Urine Ketones NEGATIVE (NEGATIVE) Urine Blood NEGATIVE (0-5) Minh/ul Urine Nitrite NEGATIVE (NEGATIVE) Urine Bilirubin NEGATIVE (NEGATIVE) Urine Urobilinogen NEGATIVE (0-1) mg/dL Ur Leukocyte Esterase NEGATIVE (NEGATIVE) Urine WBC (Auto) NONE (0-5) /HPF Urine RBC (Auto) NONE (0-2) /HPF U Epithel Cells (Auto) NONE (FEW) /HPF Urine Bacteria (Auto) NONE (NEGATIVE) /HPF Urine Mucus (Auto) SLIGHT (NEGATIVE) /HPF Urine Culture Reflexed NO (NO) Urine Glucose 50 (NEGATIVE) mg/dL Salicylates (2-20) mg/dL Urine Opiates Level NEGATIVE (NEGATIVE) Ur Methadone NEGATIVE (NEGATIVE) Acetaminophen (10-30) ug/ml Urine Barbiturates NEGATIVE (NEGATIVE) Ur Phencyclidine (PCP) NEGATIVE (NEGATIVE) Urine Amphetamine NEGATIVE (NEGATIVE) U Benzodiazepine Level POSITIVE (NEGATIVE) Urine Cocaine NEGATIVE (NEGATIVE) Urine Marijuana (THC) NEGATIVE (NEGATIVE) Ethyl Alcohol (0-10) mg/dL SARS-CoV-2 Ag (Rapid) (NEGATIVE) 11/14/20 11/14/20 11/14/20 Range/Units 14:45 14:45 14:45 WBC 9.5 (4.0-10.5) K/mm3 RBC 4.42 (4.1-5.6) M/mm3 Hgb 13.7 (12.5-18.0) gm/dl Hct 42.3 (42-50) % MCV 95.7 (78-100) fl MCH 31.0 (26-32) pg MCHC 32.4 (32-36) g/dl RDW 14.7 H (11.5-14.0) % Plt Count 231 (150-450) K/mm3 MPV 9.7 (7.5-11.0) fl Gran % 69.3 H (36.0-66.0) % Eos # (Auto) 0.07 (0-0.5) Absolute Lymphs (auto) 1.76 (1.0-4.6) Absolute Monos (auto) 1.06 (0.0-1.3) Lymphocytes % 18.6 L (24.0-44.0) % Monocytes % 11.2 (0.0-12.0) % Eosinophils % 0.7 (0.00-5.0) % Basophils % 0.2 (0.0-0.4) % Absolute Granulocytes 6.56 (1.4-6.9) Basophils # 0.02 (0-0.4) Sodium 139 (137-145) mmol/L Potassium 4.1 (3.5-5.1) mmol/L Chloride 102 (98-107) mmol/L Carbon Dioxide 26 (22-30) mmol/L Anion Gap 15.1 H (5-15) MEQ/L BUN 17 (9-20) mg/dL Creatinine 1.11 (0.66-1.25) mg/dL Estimated GFR > 60.0 ML/MIN Glucose 176 H (74-106) mg/dL POC Glucometer (74 to 106) mg/dL Calcium 9.1 (8.4-10.2) mg/dL Total Bilirubin 1.20 (0.2-1.3) mg/dL AST 20 (17-59) U/L ALT 16 (0-50) U/L Alkaline Phosphatase 119 (38-126) U/L Troponin I < 0.012 (0.000-0.034) ng/mL Serum Total Protein 6.9 (6.3-8.2) g/dL Albumin 4.0 (3.5-5.0) g/dL TSH 3rd Generation 1.150 (0.47-4.68) mIU/L Urine Color (YELLOW) Urine Appearance (CLEAR) Urine pH (5-6) Ur Specific [place] (1.005-1.025) Urine Protein (Negative) Urine Ketones (NEGATIVE) Urine Blood (0-5) Minh/ul Urine Nitrite (NEGATIVE) Urine Bilirubin (NEGATIVE) Urine Urobilinogen (0-1) mg/dL Ur Leukocyte Esterase (NEGATIVE) Urine WBC (Auto) (0-5) /HPF Urine RBC (Auto) (0-2) /HPF U Epithel Cells (Auto) (FEW) /HPF Urine Bacteria (Auto) (NEGATIVE) /HPF Urine Mucus (Auto) (NEGATIVE) /HPF Urine Culture Reflexed (NO) Urine Glucose (NEGATIVE) mg/dL Salicylates < 1.0 L (2-20) mg/dL Urine Opiates Level (NEGATIVE) Ur Methadone (NEGATIVE) Acetaminophen < 10 L (10-30) ug/ml Urine Barbiturates (NEGATIVE) Ur Phencyclidine (PCP) (NEGATIVE) Urine Amphetamine (NEGATIVE) U Benzodiazepine Level (NEGATIVE) Urine Cocaine (NEGATIVE) Urine Marijuana (THC) (NEGATIVE) Ethyl Alcohol < 10 (0-10) mg/dL SARS-CoV-2 Ag (Rapid) (NEGATIVE) 11/14/20 11/14/20 Range/Units 14:42 14:16 WBC (4.0-10.5) K/mm3 RBC (4.1-5.6) M/mm3 Hgb (12.5-18.0) gm/dl Hct (42-50) % MCV (78-100) fl MCH (26-32) pg MCHC (32-36) g/dl RDW (11.5-14.0) % Plt Count (150-450) K/mm3 MPV (7.5-11.0) fl Gran % (36.0-66.0) % Eos # (Auto) (0-0.5) Absolute Lymphs (auto) (1.0-4.6) Absolute Monos (auto) (0.0-1.3) Lymphocytes % (24.0-44.0) % Monocytes % (0.0-12.0) % Eosinophils % (0.00-5.0) % Basophils % (0.0-0.4) % Absolute Granulocytes (1.4-6.9) Basophils # (0-0.4) Sodium (137-145) mmol/L Potassium (3.5-5.1) mmol/L Chloride (98-107) mmol/L Carbon Dioxide (22-30) mmol/L Anion Gap (5-15) MEQ/L BUN (9-20) mg/dL Creatinine (0.66-1.25) mg/dL Estimated GFR ML/MIN Glucose (74-106) mg/dL POC Glucometer 169 H 160 H (74 to 106) mg/dL Calcium (8.4-10.2) mg/dL Total Bilirubin (0.2-1.3) mg/dL AST (17-59) U/L ALT (0-50) U/L Alkaline Phosphatase (38-126) U/L Troponin I (0.000-0.034) ng/mL Serum Total Protein (6.3-8.2) g/dL Albumin (3.5-5.0) g/dL TSH 3rd Generation (0.47-4.68) mIU/L Urine Color (YELLOW) Urine Appearance (CLEAR) Urine pH (5-6) Ur Specific [place] (1.005-1.025) Urine Protein (Negative) Urine Ketones (NEGATIVE) Urine Blood (0-5) Minh/ul Urine Nitrite (NEGATIVE) Urine Bilirubin (NEGATIVE) Urine Urobilinogen (0-1) mg/dL Ur Leukocyte Esterase (NEGATIVE) Urine WBC (Auto) (0-5) /HPF Urine RBC (Auto) (0-2) /HPF U Epithel Cells (Auto) (FEW) /HPF Urine Bacteria (Auto) (NEGATIVE) /HPF Urine Mucus (Auto) (NEGATIVE) /HPF Urine Culture Reflexed (NO) Urine Glucose (NEGATIVE) mg/dL Salicylates (2-20) mg/dL Urine Opiates Level (NEGATIVE) Ur Methadone (NEGATIVE) Acetaminophen (10-30) ug/ml Urine Barbiturates (NEGATIVE) Ur Phencyclidine (PCP) (NEGATIVE) Urine Amphetamine (NEGATIVE) U Benzodiazepine Level (NEGATIVE) Urine Cocaine (NEGATIVE) Urine Marijuana (THC) (NEGATIVE) Ethyl Alcohol (0-10) mg/dL SARS-CoV-2 Ag (Rapid) (NEGATIVE) - Progress Progress: improved Progress Note: 11/14/20 21:10 60 years old is evaluated for overdosing on insulin and short acting prior to arrival with some suicidal comments. Although patient denies currently having any suicidal ideations and states he was frustrated. Poison control is called who recommended observation for 8-hour and his basic work-up is grossly unremarkable for any acute findings. His blood sugar remained stable. He is medically cleared and will find behavioral health evaluation and follow their recommendations. 11/15/20 03:12 patient is accepted for transfer at [facility]. Discussed with : Other Counseled pt/family regarding: lab results, diagnosis - Departure Departure Disposition: Transfer Clinical Impression: Suicidal ideations Insulin overdose Qualifiers: Encounter type: initial encounter Injury intent: intentional self-harm Quali fied Code(s): T38.3X2A - Poisoning by insulin and oral hypoglycemic [antidiabetic] drugs, intentional self-harm, initial encounter Condition: Stable Critical Care Time: No Referrals: VINCE FONG [Primary Care Provider] -
[2020-11-14 15:45] LABS: ACETAMINOPHEN < 10 ug/ml (10-30); ALKALINE PHOSPHATASE 119 U/L (38-126); ANION GAP 15.1 MEQ/L (5-15); BLOOD UREA NITROGEN 17 mg/dL (9-20); CHLORIDE 102 mmol/L (98-107); Calcium 9.1 mg/dL (8.4-10.2); Carbon Dioxide 26 mmol/L (22-30); Creatinine 1 1.11 mg/dL (0.66-1.25); EST GLOMERULAR FILTRATION RATE > 60.0 ML/MIN; ETHYL ALCOHOL < 10 mg/dL (0-10); Glucose 176 mg/dL (74-106); Potassium 4.1 mmol/L (3.5-5.1); SALICYLATE < 1.0 mg/dL (2-20); SGOT/AST 20 U/L (17-59); SGPT/ALT 16 U/L (0-50); SODIUM 139 mmol/L (137-145); Total Protein 6.9 g/dL (6.3-8.2)
[2020-11-14 16:30] LABS: Appearance CLEAR (CLEAR); Bilirubin NEGATIVE (NEGATIVE); Blood NEGATIVE Ery/ul (0-5); Glucose 50 mg/dL (NEGATIVE); Ketones NEGATIVE (NEGATIVE); Leukocyte Esterase NEGATIVE (NEGATIVE); Mucus SLIGHT /HPF (NEGATIVE); Nitrite NEGATIVE (NEGATIVE); Protein,Urine Dip NEGATIVE (Negative); Specific Gravity 1.013 (1.005-1.025); Urobilinogen NEGATIVE mg/dL (0-1)
[2020-11-14 16:42] LABS: Amphetamine,Urine NEGATIVE (NEGATIVE); Barbiturate,Urine NEGATIVE (NEGATIVE); Benzodiazepine,Urine POSITIVE (NEGATIVE); Cocaine,Urine NEGATIVE (NEGATIVE); Methadone,Urine NEGATIVE (NEGATIVE); Opiate,Urine NEGATIVE (NEGATIVE); PCP,Urine NEGATIVE (NEGATIVE); THC,Urine NEGATIVE (NEGATIVE)
[2020-11-14] MEDS ORDERED: Zofran 4 MG/2 ML VIAL IV ONE (22:49)
[2020-11-14] MEDS ORDERED: Zofran 4 MG/2 ML VIAL ONE (22:53)
[2020-11-15] MEDS ORDERED: Lasix 40 MG PO ONE (00:07)
[2020-11-15] MEDS ORDERED: BENADRYL 25 MG CAPSULE PO ONE (00:07)
[2020-11-15] MEDS ORDERED: Mirapex 0.5 MG Tablet PO ONE (00:10)
[2020-11-15] MEDS ORDERED: Reglan 10 MG PO ONE (00:10)
[2020-11-15] MEDS: COREG 12.5 MG PO SCH ×2 (00:15→00:16)
[2020-11-15 03:08] LABS: COVID AG -BINAX NOW RAPID TEST NEGATIVE (NEGATIVE)
[2020-11-15] MEDS ORDERED: HUMULIN R SQ ONE (03:27)
[2020-11-15] MEDS ORDERED: HUMULIN R ONE (03:30)
[2020-11-15 03:33] VITALS: BP 126/77; PULSE 71
[2020-11-15] MEDS ORDERED: Colace 100 MG PO SCH (22:00)
[2020-11-16 08:13] VITALS: O2SAT 97
== END 2020-11-15 04:00 ==
LOC: ED 14:01
DX: T38.3X2A Poisoning by insulin and oral hypoglycemic [antidiabetic] drugs, intentional self-harm, initial encounter (principal); R45.851 Suicidal ideations; Z79.899 Other long term (current) drug therapy; I25.10 Atherosclerotic heart disease of native coronary artery without angina pectoris; E78.00 Pure hypercholesterolemia, unspecified; I10 Essential (primary) hypertension; E10.9 Type 1 diabetes mellitus without complications
CPT/HCPCS: 36000; 36415; 80053; 80307; 81001; 82947; 84443; 84484; 85025; 93005; 96372; 96374; 99000; 99285; J1815; J2405; G0480

== ENCOUNTER 2021-05-30 07:37 | Emergency (ER) | payer MEDICAID ==
[2021-05-30] MEDS ORDERED: Zofran 4 MG/2 ML VIAL IV ONE (07:49)
[2021-05-30] MEDS ORDERED: Sodium Chloride 0.9% 1000 ML 1,000 ML IV STA (07:49)
--- NOTE | 2021-05-30 08:02 | ERPHSYRPT ---
- History of Present Illness Time Seen by Provider: 05/30/21 07:38 Historian: patient, family, EMS Exam Limitations: no limitations Patient Subjective Stated Complaint: Pt states "I have been having trouble with my insulin pump since monday. I have been nauseated and had diarrhea since monday as well." Triage Nursing Assessment: Pt presented alert and oriented X 3, skin pwd Pt able to speak in clear full sentences. pt trembling, resting comfortably. Physician History: 61 years old male with multiple medical problems including coronary artery disease status post CABG, pacemaker placement, hypertension, hyperlipidemia, hypothyroidism, diabetes mellitus insulin-dependent presented in the ER with complaints of fluctuating blood sugars for the last 2 days. Goes either very high or bottoms down to 40s. Currently blood sugar is in 200s. He is also complaining of increasing nausea for the last 2 days with abdominal sharp stabbing pain in the lower abdomen with associated multiple episodes of loose stool and is not able to keep up with his hydration nausea, feels weak fatigued tired and dehydrated. Denies fever chills, chest pain palpitations or shortness of breath. Denies any sick contact. Timing/Duration: day(s) (2), gradual onset, worse Activities at Onset: rest Quality: sharpness, stabbing Abdominal Pain Onset Location: LLQ, periumbilical, suprapubic Pain Radiation: no radiation Severity of Pain-Max: moderate Severity of Pain-Current: mild Modifying Factors: Improves With: nothing Associated Symptoms: diarrhea, nausea Previous symptoms: no prior history Allergies/Adverse Reactions: levofloxacin [From Levaquin] Allergy (Verified 11/14/20 14:31) Penicillins Allergy (Verified 11/14/20 14:31) Sulfa (Sulfonamide Antibiotics) Allergy (Verified 11/14/20 14:31) Home Medications: Clopidogrel Bisulfate 75 mg [PLAVIX 75 MG Tablet] 75 mg PO DAILY 04/27/15 [History] Diphenoxylate HCl/Atropine [Lomotil 2.5-0.025 mg Tablet] 1 each PO DAILY PRN PRN 04/27/15 [History] Furosemide [Lasix] 40 mg PO TID 10/11/16 [History] Insulin Aspart [NovoLOG Insulin] 1 unit SQ UD 10/11/16 [History] Levothyroxine Sodium 112 Mcg [Synthroid 112 Mcg] 150 mcg PO DAILY 10/11/16 [History] Promethazine HCl 25 mg [Phenergan 25 mg] 25 mg PO Q4H PRN PRN 10/11/16 [History] ondansetron HCL [Zofran] 12 mg PO Q4H PRN PRN 10/11/16 [History] ALPRAZolam [Alprazolam] 1 mg PO DAILY 08/18/20 [History] Aspirin 81 mg PO DAILY 08/18/20 [History] Atorvastatin Calcium [Lipitor] 40 mg PO DAILY 08/18/20 [History] Glucagon [Baqsimi] 3 mg NS DAILY PRN 08/18/20 [History] Isosorbide Mononitrate 30 mg [Imdur 30 MG] 30 mg PO DAILY 08/18/20 [History] ALPRAZolam [Alprazolam] 0.5 mg PO Q8H PRN 11/14/20 [History] Benzonatate 100 mg PO TID PRN 11/14/20 [History] Diphenhydramine HCl 25 mg [Benadryl 25 mg Capsule] 50 mg PO Q4H 11/14/20 [History] Docusate Sodium 100 mg [Colace 100 MG] 100 mg PO BID 11/14/20 [History] Ergocalciferol (Vitamin D2) [Vitamin D2] 1.25 mg PO WEEKLY 11/14/20 [History] Famotidine [Pepcid] 40 mg PO DAILY 11/14/20 [History] Metoclopramide HCl 10 mg [Reglan 10 MG] 10 mg PO TID 11/14/20 [History] Nitroglycerin 0.4 mg SL DAILY PRN 11/14/20 [History] carvediloL [Carvedilol] 25 mg PO BID 11/14/20 [History] Hx Tetanus, Diphtheria Vaccination/Date Given: Yes Hx Influenza Vaccination/Date Given: Yes Hx Pneumococcal Vaccination/Date Given: Yes Immunizations Up to Date: Yes Travel Risk - International Travel Have you traveled outside of the country in past 3 weeks: No - Coronavirus Screening Are you exhibiting any of the following symptoms?: Yes Symptoms: Vomiting/Diarrhea - Vaccine Status Have you recieved a Covid-19 vaccination: Yes ("I am not answering questions.") [employer]: [employer] - Vaccination Dates Date of 2cond Vaccination (if applicable): 05/2020 - Review of Systems Constitutional: Fatigue, Weakness Eyes: No Symptoms Ears, Nose, & Throat: No Symptoms Respiratory: No Symptoms Cardiac: No Symptoms Abdominal/Gastrointestinal: Abdominal Pain, Nausea, Diarrhea Genitourinary Symptoms: No Symptoms Musculoskeletal: Myalgias Skin: No Symptoms Neurological: No Symptoms Psychological: Anxiety Hematologic/Lymphatic: No Symptoms Immunological/Allergic: No Symptoms - Past Medical History Pertinent Past Medical History: Yes Neurological History: No Pertinent History ENT History: No Pertinent History Cardiac History: Angina, Arrhythmia, Coronary Artery Disease, High Cholesterol, Hypertension Respiratory History: No Pertinent History Endocrine Medical History: Diabetes Type I Musculoskeletal History: Arthritis, Fractures GI Medical History: Irritable Bowel History: No Pertinent History Psycho-Social History: Anxiety Male Reproductive Disorders: No Pertinent History Other Medical History: R GREAT TOE FRACTURE. - Past Surgical History Past Surgical History: Yes Neuro Surgical History: No Pertinent History Cardiac: CABG, Cardiac Catheterization Respiratory: No Pertinent History Gastrointestinal: Appendectomy Genitourinary: No Pertinent History Musculoskeletal: No Pertinent History Male Surgical History: No Pertinent History Other Surgical History: LAZER TREATMENTS IN R EYE, LEFT FEMUR AND RIGHT SHOULDER SURG - Social History Smoking Status: Never smoker Exposure to second hand smoke: No Drug Use: none Patient Lives Alone: No - Nursing Vital Signs Nursing Vital Signs: Initial Vital Signs Temperature 98.0 F 05/30/21 07:38 Pulse Rate 70 05/30/21 07:38 Respiratory Rate 22 05/30/21 07:38 Blood Pressure 135/50 05/30/21 07:38 O2 Sat by Pulse Oximetry 94 L 05/30/21 07:38 Pain Scale Pain Intensity 0 - Physical Exam General Appearance: no apparent distress, alert, anxiety Eye Exam: PERRL/EOMI, eyes nml inspection Ears, Nose, Throat Exam: normal ENT inspection, TMs normal, pharynx normal Neck Exam: normal inspection, supple, full range of motion Respiratory Exam: normal breath sounds, lungs clear Cardiovascular Exam: regular rate/rhythm, normal heart sounds Gastrointestinal/Abdomen Exam: soft, normal bowel sounds, tenderness (Minimal lower abdominal tenderness without guarding or rebound) Extremity Exam: normal inspection, normal range of motion, swelling (Chronic swelling of right lower extremity as compared to left), No pelvis stable Neurologic Exam: alert, oriented x 3, cooperative Skin Exam: normal color SpO2 Interpretation: normal SpO2: 94 O2 Delivery: Room Air - Course EKG Interpreted by Me: RATE (70), Sinus Rhythm, NORMAL AXIS, NORMAL INTERVALS, Right Bundle Branch Block, Non-specific ST Changes Ordered Tests: Active Orders 24 hr Category Date Time Status Manager Desktop STAT Care 05/30/21 07:50 Active EKG-ER Only STAT Care 05/30/21 07:49 Active IV Insertion STAT Care 05/30/21 07:49 Active NPO (ED) STAT Care 05/30/21 07:50 Active POCT Glucose Check STAT Care 05/30/21 07:49 Active ABDOMEN AND PELVIS W/0 CONTRAS [CT] Stat Exams 05/30/21 07:50 Taken CBC W DIFF Stat Lab 05/30/21 08:00 Completed CMP Stat Lab 05/30/21 08:00 Completed LIPASE Stat Lab 05/30/21 08:00 Completed Lactic Acid Urgent Lab 05/30/21 07:49 Completed MAGNESIUM Stat Lab 05/30/21 08:00 Completed POCT GLUCOSE Stat Lab 05/30/21 07:55 Completed POCT GLUCOSE Stat Lab 05/30/21 11:21 Completed TROPONIN Q3H Lab 05/30/21 08:00 Completed TROPONIN Q3H Lab 05/30/21 11:11 Completed TROPONIN Q3H Lab 05/30/21 14:00 Ordered TROPONIN Q3H Lab 05/30/21 17:00 Ordered TROPONIN Q3H Lab 05/30/21 20:00 Ordered VENOUS BLOOD GAS Urgent Lab 05/30/21 07:49 Completed Medication Summary Discontinued Medications Generic Name Dose Route Start Last Admin Trade Name Freq PRN Reason Stop Dose Admin Sodium Chloride 1,000 mls @ 999 mls/hr 05/30/21 07:49 05/30/21 09:15 Sodium Chloride 0.9% 1000 Ml IV 05/30/21 08:49 Infused .Q1H1M STA Infusion Sodium Chloride Confirm 05/30/21 08:03 Sodium Chloride 0.9% 1000 Ml Administered 05/30/21 08:04 Dose 1,000 mls @ ud .ROUTE .STK-MED ONE Ondansetron HCl 4 mg 05/30/21 07:49 05/30/21 08:04 Ondansetron Hcl 4 Mg/2 Ml Vial IV 05/30/21 07:50 4 mg STAT ONE Administration Ondansetron HCl Confirm 05/30/21 08:03 Ondansetron Hcl 4 Mg/2 Ml Vial Administered 05/30/21 08:04 Dose 4 mg .ROUTE .STK-MED ONE Lab/Rad Data: Laboratory Result Diagrams 05/30/21 08:00 05/30/21 08:00 Laboratory Results 05/30/21 05/30/21 05/30/21 Range/Units 11:21 11:11 09:34 WBC (4.0-10.5) K/mm3 RBC (4.1-5.6) M/mm3 Hgb (12.5-18.0) gm/dl Hct (42-50) % MCV (78-100) fl MCH (26-32) pg MCHC (32-36) g/dl RDW (11.5-14.0) % Plt Count (150-450) K/mm3 MPV (7.5-11.0) fl Gran % (36.0-66.0) % Eos # (Auto) (0-0.5) Absolute Lymphs (auto) (1.0-4.6) Absolute Monos (auto) (0.0-1.3) Lymphocytes % (24.0-44.0) % Monocytes % (0.0-12.0) % Eosinophils % (0.00-5.0) % Basophils % (0.0-0.4) % Absolute Granulocytes (1.4-6.9) Basophils # (0-0.4) pO2/FiO2 Ratio % VBG pH (7.32-7.42) VBG pCO2 at Pat Temp (42-55) mm/Hg VBG pO2 at Pat Temp (25-40) mm/Hg VBG HCO3 (22-28) meq/L VBG O2 Sat (Yesi) (95-100) VBG Base Excess (-2.0-2.0) VBG Hemoglobin VBG Carboxyhemoglobin (0.0-6.9) % T HGB POC Potassium (3.5-5.1) Sodium (137-145) mmol/L Potassium (3.5-5.1) mmol/L Chloride (98-107) mmol/L Carbon Dioxide (22-30) mmol/L Anion Gap (5-15) MEQ/L BUN (9-20) mg/dL Creatinine (0.66-1.25) mg/dL Estimated GFR ML/MIN Glucose (74-106) mg/dL POC Glucometer 128 H (74 to 106) mg/dL Lactic Acid (0.4-2.0) Calcium (8.4-10.2) mg/dL Magnesium (1.6-2.3) mg/dL Total Bilirubin (0.2-1.3) mg/dL AST (17-59) U/L ALT (0-50) U/L Alkaline Phosphatase (38-126) U/L Troponin I < 0.012 (0.000-0.034) ng/mL Serum Total Protein (6.3-8.2) g/dL Albumin (3.5-5.0) g/dL Lipase (23-300) U/L Urinalys Dipstick Clnc MAIN LAB Urine Color DARK YELLOW (YELLOW) Urine Appearance CLEAR (CLEAR) Urine pH 5.0 (5-6) Ur Specific [place] 1.025 (1.005-1.025) POC Urine Protein Conf NEGATIVE (Negative) Urine Ketones NEGATIVE (NEGATIVE) Urine Nitrite NEGATIVE (NEGATIVE) Urine Bilirubin NEGATIVE (NEGATIVE) Urine Urobilinogen 0.2 (0-1) mg/dL Urine Leukocytes NEGATIVE (NEGATIVE) Urine WBC (Auto) 0-2 (0-5) /HPF Urine RBC (Auto) 0-2 (0-2) /HPF U Hyaline Cast (Auto) 3-5 (0-2) /LPF U Epithel Cells (Auto) NONE (FEW) /HPF Urine Bacteria (Auto) NONE SEEN (NEGATIVE) /HPF Urine RBC NEGATIVE (0-5) Minh/ul Other Casts (Auto) 2-5 (NEGATIVE) /LPF Urine Mucus (Auto) SLIGHT (NEGATIVE) /HPF Ur Culture Indicated? NO Urine Glucose NEGATIVE (NEGATIVE) mg/dL 05/30/21 05/30/21 05/30/21 Range/Units 08:00 08:00 08:00 WBC 18.5 H (4.0-10.5) K/mm3 RBC 4.33 (4.1-5.6) M/mm3 Hgb 13.9 (12.5-18.0) gm/dl Hct 42.1 (42-50) % MCV 97.2 (78-100) fl MCH 32.1 H (26-32) pg MCHC 33.0 (32-36) g/dl RDW 14.4 H (11.5-14.0) % Plt Count 207 (150-450) K/mm3 MPV 10.3 (7.5-11.0) fl Gran % 78.3 H (36.0-66.0) % Eos # (Auto) 0.17 (0-0.5) Absolute Lymphs (auto) 2.02 (1.0-4.6) Absolute Monos (auto) 1.79 H (0.0-1.3) Lymphocytes % 10.9 L (24.0-44.0) % Monocytes % 9.7 (0.0-12.0) % Eosinophils % 0.9 (0.00-5.0) % Basophils % 0.2 (0.0-0.4) % Absolute Granulocytes 14.43 H (1.4-6.9) Basophils # 0.04 (0-0.4) pO2/FiO2 Ratio % VBG pH (7.32-7.42) VBG pCO2 at Pat Temp (42-55) mm/Hg VBG pO2 at Pat Temp (25-40) mm/Hg VBG HCO3 (22-28) meq/L VBG O2 Sat (Yesi) (95-100) VBG Base Excess (-2.0-2.0) VBG Hemoglobin VBG Carboxyhemoglobin (0.0-6.9) % T HGB POC Potassium (3.5-5.1) Sodium 135 L (137-145) mmol/L Potassium 4.4 (3.5-5.1) mmol/L Chloride 104 (98-107) mmol/L Carbon Dioxide 24 (22-30) mmol/L Anion Gap 11.7 (5-15) MEQ/L BUN 21 H (9-20) mg/dL Creatinine 1.31 H (0.66-1.25) mg/dL Estimated GFR 58.7 ML/MIN Glucose 170 H (74-106) mg/dL POC Glucometer (74 to 106) mg/dL Lactic Acid (0.4-2.0) Calcium 9.1 (8.4-10.2) mg/dL Magnesium 2.0 (1.6-2.3) mg/dL Total Bilirubin 1.90 H (0.2-1.3) mg/dL AST 25 (17-59) U/L ALT 14 (0-50) U/L Alkaline Phosphatase 79 (38-126) U/L Troponin I 0.015 (0.000-0.034) ng/mL Serum Total Protein 6.8 (6.3-8.2) g/dL Albumin 3.8 (3.5-5.0) g/dL Lipase 14 L (23-300) U/L Urinalys Dipstick Clnc Urine Color (YELLOW) Urine Appearance (CLEAR) Urine pH (5-6) Ur Specific [place] (1.005-1.025) POC Urine Protein Conf (Negative) Urine Ketones (NEGATIVE) Urine Nitrite (NEGATIVE) Urine Bilirubin (NEGATIVE) Urine Urobilinogen (0-1) mg/dL Urine Leukocytes (NEGATIVE) Urine WBC (Auto) (0-5) /HPF Urine RBC (Auto) (0-2) /HPF U Hyaline Cast (Auto) (0-2) /LPF U Epithel Cells (Auto) (FEW) /HPF Urine Bacteria (Auto) (NEGATIVE) /HPF Urine RBC (0-5) Minh/ul Other Casts (Auto) (NEGATIVE) /LPF Urine Mucus (Auto) (NEGATIVE) /HPF Ur Culture Indicated? Urine Glucose (NEGATIVE) mg/dL 05/30/21 05/30/21 Range/Units 07:55 07:49 WBC (4.0-10.5) K/mm3 RBC (4.1-5.6) M/mm3 Hgb (12.5-18.0) gm/dl Hct (42-50) % MCV (78-100) fl MCH (26-32) pg MCHC (32-36) g/dl RDW (11.5-14.0) % Plt Count (150-450) K/mm3 MPV (7.5-11.0) fl Gran % (36.0-66.0) % Eos # (Auto) (0-0.5) Absolute Lymphs (auto) (1.0-4.6) Absolute Monos (auto) (0.0-1.3) Lymphocytes % (24.0-44.0) % Monocytes % (0.0-12.0) % Eosinophils % (0.00-5.0) % Basophils % (0.0-0.4) % Absolute Granulocytes (1.4-6.9) Basophils # (0-0.4) pO2/FiO2 Ratio 21.0 % VBG pH 7.37 (7.32-7.42) VBG pCO2 at Pat Temp 43 (42-55) mm/Hg VBG pO2 at Pat Temp 41 H (25-40) mm/Hg VBG HCO3 24.9 (22-28) meq/L VBG O2 Sat (Yesi) 72.2 L (95-100) VBG Base Excess -0.6 (-2.0-2.0) VBG Hemoglobin 14.0 VBG Carboxyhemoglobin 3.2 (0.0-6.9) % T HGB POC Potassium 4.3 (3.5-5.1) Sodium (137-145) mmol/L Potassium (3.5-5.1) mmol/L Chloride (98-107) mmol/L Carbon Dioxide (22-30) mmol/L Anion Gap (5-15) MEQ/L BUN (9-20) mg/dL Creatinine (0.66-1.25) mg/dL Estimated GFR ML/MIN Glucose (74-106) mg/dL POC Glucometer 170 H (74 to 106) mg/dL Lactic Acid 1.5 (0.4-2.0) Calcium (8.4-10.2) mg/dL Magnesium (1.6-2.3) mg/dL Total Bilirubin (0.2-1.3) mg/dL AST (17-59) U/L ALT (0-50) U/L Alkaline Phosphatase (38-126) U/L Troponin I (0.000-0.034) ng/mL Serum Total Protein (6.3-8.2) g/dL Albumin (3.5-5.0) g/dL Lipase (23-300) U/L Urinalys Dipstick Clnc Urine Color (YELLOW) Urine Appearance (CLEAR) Urine pH (5-6) Ur Specific [place] (1.005-1.025) POC Urine Protein Conf (Negative) Urine Ketones (NEGATIVE) Urine Nitrite (NEGATIVE) Urine Bilirubin (NEGATIVE) Urine Urobilinogen (0-1) mg/dL Urine Leukocytes (NEGATIVE) Urine WBC (Auto) (0-5) /HPF Urine RBC (Auto) (0-2) /HPF U Hyaline Cast (Auto) (0-2) /LPF U Epithel Cells (Auto) (FEW) /HPF Urine Bacteria (Auto) (NEGATIVE) /HPF Urine RBC (0-5) Minh/ul Other Casts (Auto) (NEGATIVE) /LPF Urine Mucus (Auto) (NEGATIVE) /HPF Ur Culture Indicated? Urine Glucose (NEGATIVE) mg/dL - Progress Progress: improved Progress Note: 05/30/21 12:01 Is given fluids and Zofran for symptomatic relief, on reevaluation feeling better. Has a white count of 18, lactate 1.5, stable renal function with chronic kidney disease. Obtained CT abdomen pelvis which showed proximal sigmoid colonic concentric thickening needing further evaluation by colonoscopy. Patient is scheduled for outpatient EGD in 2 days, I have asked him to talk to his answering service telephone operator so if they can do probably colonoscopy in the same anesthesia. Patient blood sugar reported 200s on presentation and it improved to 135 and then remained stable around 128. Patient later on reported that he does not see very well and might have punched the wrong dose of insulin which is quite possible. I think pump is working and also bleeding from last night did not show any below 100s. Patient is generally weak all over without any obvious focus of infection. Recommended outpatient follow-up. Discussed signs symptoms of worsening needing return to ER which he seems understanding. Counseled pt/family regarding: lab results, diagnosis, need for follow-up, rad results - Departure Departure Disposition: Home Clinical Impression: Generalized weakness, Uncontrolled diabetes mellitus, Sigmoid thickening Condition: Stable Critical Care Time: No Referrals: VINCE FONG [Primary Care Provider] - Follow up/PCP as directed (1-2 days for reevaluation) Instructions: Low Blood Sugar, Adult (DC), Generalized Weakness (DC) Additional Instructions: Monitor your blood sugar regularly and punch right dose of insulin carefully every time. Follow-up with primary care for reevaluation, return to ER or poorly controlled blood sugar either high or low. Immediately take some oral sugar containing stop if blood sugar is below 70. Call your answering service telephone operator tomorrow to see if he can have you scheduled for colonoscopy as well in 2 days when you having EGD. Prescriptions: Ondansetron ODT 4 MG [Zofran Odt 4 mg] 1 ea PO QIDPRN PRN #7 tablet PRN Reason: n/v
[2021-05-30] MEDS ORDERED: Zofran 4 MG/2 ML VIAL ONE (08:03)
[2021-05-30] MEDS ORDERED: Sodium Chloride 0.9% 1000 ML 1,000 ML ONE (08:03)
[2021-05-30 08:10] LABS: Absolute Neutrophil Ct (ANC) 14.43 (1.4-6.9); Basophil (Absolute #) 0.04 (0-0.4); Eosinophil % 0.9 % (0.00-5.0); Eosinophil (Absolute #) 0.17 (0-0.5); Hematocrit 42.1 % (42-50); Hemoglobin 13.9 gm/dl (12.5-18.0); Lymphocyte (Absolute #) 2.02 (1.0-4.6); Lymphocytes % 10.9 % (24.0-44.0); Mean Cell Volume 97.2 fl (78-100); Mean Corpuscular Hemoglobin 32.1 pg (26-32); Mean Platelet Volume 10.3 fl (7.5-11.0); Monocyte (Absolute #) 1.79 (0.0-1.3); Monocytes % 9.7 % (0.0-12.0); Neutrophil % 78.3 % (36.0-66.0); Platelet Count 207 K/mm3 (150-450); Red Blood Count 4.33 M/mm3 (4.1-5.6); Red Cell Distribution Width 14.4 % (11.5-14.0); White Blood Count 18.5 K/mm3 (4.0-10.5)
[2021-05-30 08:25] LABS: Lactic Acid 1.5 (0.4-2.0); VBG BASE EXCESS -0.6 (-2.0-2.0); VBG CARBOXYHEMOGLOBIN 3.2 % T HGB (0.0-6.9); VBG HCO3- 24.9 meq/L (22-28); VBG O2 SATURATION 72.2 (95-100); VBG POTASSIUM 4.3 (3.5-5.1); VBG pH 7.37 (7.32-7.42)
[2021-05-30 08:26] LABS: ALBUMIN 3.8 g/dL (3.5-5.0); ANION GAP 11.7 MEQ/L (5-15); BILIRUBIN,TOTAL 1.9 mg/dL (0.2-1.3); Calcium 9.1 mg/dL (8.4-10.2); Creatinine 1 1.31 mg/dL (0.66-1.25); EST GLOMERULAR FILTRATION RATE 58.7 ML/MIN; Potassium 4.4 mmol/L (3.5-5.1); Total Protein 6.8 g/dL (6.3-8.2)
[2021-05-30 10:35] LABS: Appearance CLEAR (CLEAR); Mucus SLIGHT /HPF (NEGATIVE); RBC 0-2 /HPF (0-2); WBC 0-2 /HPF (0-5)
[2021-05-30 10:36] LABS: Bacteria NONE SEEN /HPF (NEGATIVE); Bilirubin NEGATIVE (NEGATIVE); Glucose NEGATIVE (NEGATIVE); Ketones NEGATIVE (NEGATIVE); Nitrite NEGATIVE (NEGATIVE); Protein,Urine Dip NEGATIVE (Negative); RBC NEGATIVE Ery/ul (0-5); Specific Gravity 1.025 (1.005-1.025); Urine Cultured Indicated? NO; Urobilinogen 0.2 mg/dL (0-1)
[2021-05-30 10:40] VITALS: PULSE 70
[2021-05-30 10:41] LABS: Dipstick done @ ? MAIN LAB
[2021-05-30 12:03] VITALS: BP 134/67
[2021-05-30 12:07] VITALS: O2SAT 94
[2021-05-30 13:30] LABS: Slide Review 1 YES
--- NOTE | 2021-05-30 22:09 | XRAY ---
Indication: Pain, nausea, and diarrhea. Multiple contiguous axial images obtained through the abdomen and pelvis without contrast. Comparison: None Lung bases demonstrate minimal dependent atelectasis and tiny right base calcified granuloma. No infiltrate or effusion. Heart not enlarged. Noncontrasted stomach and bowel loops appear nonobstructed. No free fluid/air. Tiny calcified splenic granulomas. No free fluid/air. Remaining liver, gallbladder, pancreas, spleen, adrenal glands, kidneys, ureters, and bladder are unremarkable for noncontrast exam. Moderate scattered vascular calcifications. No AAA. Incidental partially visualized penile implants. Osseous structures intact with mild osteopenia, mild degenerative changes throughout the spine, mild bilateral hip degenerative arthropathy, and superior L1 Schmorl node versus remote fracture. Impression: 1. Chronic bony findings, arteriosclerotic disease, penile implants, and old granulomatous disease. 2. Remaining CT abdomen/pelvis without contrast exam is negative. Comment: Preliminary interpretation made by C. No critical discrepancy.
== END 2021-05-30 12:56 | disposition home or self-care (01) ==
LOC: ED 07:37
DX: E10.65 Type 1 diabetes mellitus with hyperglycemia (principal); Z96.41 Presence of insulin pump (external) (internal); Z79.4 Long term (current) use of insulin; R93.3 Abnormal findings on diagnostic imaging of other parts of digestive tract; R53.1 Weakness; R10.32 Left lower quadrant pain; R10.33 Periumbilical pain; R10.2 Pelvic and perineal pain; R19.7 Diarrhea, unspecified; R11.0 Nausea; E78.5 Hyperlipidemia, unspecified; I10 Essential (primary) hypertension; Z79.899 Other long term (current) drug therapy; Z79.01 Long term (current) use of anticoagulants
CPT/HCPCS: 36000; 36415; 74176; 80053; 81015; 82805; 82947; 83605; 83690; 83735; 84484; 85025; 93005; 93041; 96360; 96374; 99284; J2405

== ENCOUNTER 2023-12-01 13:04 | Emergency (ER) | payer MEDICAID, OTHER ==
--- NOTE | 2023-12-01 13:12 | ERPHSYRPT ---
- History of Present Illness Time Seen by Provider: 12/01/23 13:12 Source: patient, EMS, old records Physician History: This is a 63-year-old white male patient of Dr. Golden who is a resident in the retirement facility who was transported to our facility by the extrusion process operator service to treat constipation. The retirement did not check this patient for stool in the rectum or provide him with any type of intervention. Patient states that he dug himself out all night. Patient has a history hypothyroidism, insulin-dependent diabetes, gastroesophageal reflux disease, Plavix and anxiety. Timing/Duration: today Severity: mild (To moderate) Associated Symptoms: other (Constipation) Allergies/Adverse Reactions: clindamycin Allergy (Verified 12/01/23 13:07) codeine Allergy (Verified 12/01/23 13:07) levofloxacin [From Levaquin] Allergy (Verified 11/14/20 14:31) Penicillins Allergy (Verified 11/14/20 14:31) Sulfa (Sulfonamide Antibiotics) Allergy (Verified 11/14/20 14:31) Home Medications: Clopidogrel Bisulfate [PLAVIX Tablet] 75 mg PO DAILY 04/27/15 [History] Diphenoxylate HCl/Atropine [Lomotil 2.5-0.025 mg Tablet] 1 each PO DAILY PRN PRN 04/27/15 [History] Furosemide [Lasix] 40 mg PO TID 10/11/16 [History] Insulin Aspart [NovoLOG Insulin] 1 unit SQ UD 10/11/16 [History] Levothyroxine Sodium 112 Mcg [Synthroid 112 Mcg] 150 mcg PO DAILY 10/11/16 [History] Promethazine HCl 25 mg [Phenergan 25 mg] 25 mg PO Q4H PRN PRN 10/11/16 [History] ondansetron HCL [Zofran] 12 mg PO Q4H PRN PRN 10/11/16 [History] ALPRAZolam [Alprazolam] 1 mg PO DAILY 08/18/20 [History] Aspirin 81 mg PO DAILY 08/18/20 [History] Atorvastatin Calcium [Lipitor] 40 mg PO DAILY 08/18/20 [History] Glucagon [Baqsimi] 3 mg NS DAILY PRN 08/18/20 [History] Isosorbide Mononitrate 30 mg [Imdur 30 MG] 30 mg PO DAILY 08/18/20 [History] ALPRAZolam [Alprazolam] 0.5 mg PO Q8H PRN 11/14/20 [History] Benzonatate 100 mg PO TID PRN 11/14/20 [History] Diphenhydramine HCl 25 mg [Benadryl 25 mg Capsule] 50 mg PO Q4H 11/14/20 [History] Docusate Sodium 100 mg [Docusate Sodium 100 MG] 100 mg PO BID 11/14/20 [History] Ergocalciferol (Vitamin D2) [Vitamin D2] 1.25 mg PO WEEKLY 11/14/20 [History] Famotidine [Pepcid] 40 mg PO DAILY 11/14/20 [History] Metoclopramide HCl 10 mg [Reglan 10 MG] 10 mg PO TID 11/14/20 [History] Nitroglycerin 0.4 mg SL DAILY PRN 11/14/20 [History] carvediloL [Carvedilol] 25 mg PO BID 11/14/20 [History] Hx Tetanus, Diphtheria Vaccination/Date Given: Yes Hx Influenza Vaccination/Date Given: Yes Hx Pneumococcal Vaccination/Date Given: Yes Travel Risk - International Travel Have you traveled outside of the country in past 3 weeks: No - Emerging Infectious Disease Are you exhibiting symptoms associated with any current EIDs: No - Review of Systems Constitutional: No Symptoms Eyes: No Symptoms Ears, Nose, & Throat: No Symptoms Respiratory: No Symptoms Cardiac: No Symptoms Abdominal/Gastrointestinal: Constipation Genitourinary Symptoms: No Symptoms Musculoskeletal: No Symptoms Skin: No Symptoms Neurological: No Symptoms Psychological: No Symptoms Endocrine: No Symptoms Hematologic/Lymphatic: No Symptoms Immunological/Allergic: No Symptoms All Other Systems: Reviewed and Negative - Past Medical History Pertinent Past Medical History: Yes Neurological History: No Pertinent History ENT History: No Pertinent History Cardiac History: Angina, Arrhythmia, Coronary Artery Disease, High Cholesterol, Hypertension Respiratory History: No Pertinent History Endocrine Medical History: Diabetes Type I Musculoskeletal History: Arthritis, Fractures GI Medical History: Irritable Bowel History: No Pertinent History Psycho-Social History: Anxiety Male Reproductive Disorders: No Pertinent History Other Medical History: R GREAT TOE FRACTURE. - Past Surgical History Past Surgical History: Yes Neuro Surgical History: No Pertinent History Cardiac: CABG, Cardiac Catheterization Respiratory: No Pertinent History Gastrointestinal: Appendectomy Genitourinary: No Pertinent History Musculoskeletal: No Pertinent History Male Surgical History: No Pertinent History Other Surgical History: LAZER TREATMENTS IN R EYE, LEFT FEMUR AND RIGHT SHOULDER SURG - Social History Smoking Status: Never smoker Exposure to second hand smoke: No Drug Use: none Patient Lives Alone: No - Nursing Vital Signs Nursing Vital Signs: Initial Vital Signs Temperature 97.0 F 12/01/23 13:26 Pulse Rate 70 12/01/23 13:26 Respiratory Rate 18 12/01/23 13:26 Blood Pressure 95/55 12/01/23 13:26 O2 Sat by Pulse Oximetry 98 12/01/23 13:26 Pain Scale Pain Intensity 10 - Physical Exam General Appearance: no apparent distress, alert, anxiety Eye Exam: PERRL/EOMI Ears, Nose, Throat Exam: normal ENT inspection, TM abnormal (L) Neck Exam: normal inspection, non-tender, supple, full range of motion Respiratory Exam: normal breath sounds, lungs clear, airway intact, No chest tenderness, No respiratory distress Cardiovascular Exam: regular rate/rhythm, normal heart sounds, normal peripheral pulses Rectal Exam: tenderness Back Exam: normal inspection, normal range of motion, No CVA tenderness, No vertebral tenderness Extremity Exam: pelvis stable Neurologic Exam: alert, cooperative, library director II-XII nml as tested, sensation nml Skin Exam: normal color, warm, dry Lymphatic Exam: No adenopathy SpO2 Interpretation: normal O2 Delivery: Room Air - Course Nursing assessment & vital signs reviewed: Yes Ordered Tests: Active Orders 24 hr Category Date Time Status Enema STAT Care 12/01/23 14:31 Active KUB Stat Exams 12/01/23 13:30 Taken Medication Summary Discontinued Medications Generic Name Dose Route Start Last Admin Trade Name Freq PRN Reason Stop Dose Admin Morphine Sulfate 2 mg 12/01/23 14:47 Morphine Sulfate 2 Mg/Ml Inj IM 12/01/23 14:48 STAT ONE Ondansetron HCl 4 mg 12/01/23 14:47 Zofran 4 Mg/Udtablet Orally Disintegrating PO 12/01/23 14:48 STAT ONE - Progress Progress: unchanged Progress Note: 12/01/23 14:44 My medical decision making of the assignment of low complexity to this patient's medical issue today is based on review of the patient's past medical history, review the patient's medication list, review the patient drug allergy list, history present illness and physical findings on examination. The workup in this patient includes abdominal KUB. 12/01/23 14:49 Differential diagnosis includes but is not limited to constipation and rectal impaction Counseled pt/family regarding: diagnosis, need for follow-up, rad results Medical Desision Making - Diagnostic Testing Diagnostic test were ordered, analyzed, and reviewed by me: Yes Radiological Interpretation: Interpreted by me - Risk of complications Low Risk: Low risk of morbidity from additional dx testing or treatment - Departure Departure Disposition: Home Clinical Impression: Constipation, Fecal impaction in rectum Condition: Stable Critical Care Time: No Referrals: VINCE GOLDEN [Primary Care Provider] - Follow up/PCP as directed Additional Instructions: In the retirement, make sure the patient has bowel hygiene including, if there are no contraindications, a combination of MiraLAX, milk of magnesia, stool softeners, glycerin suppositories rectally, fleets enemas, soapsuds enemas. Make sure these modalities are tried before sending the patient to the emergency department to help relieve constipation/rectal impaction
[2023-12-01 13:27] VITALS: RESP 18; TEMP 97
[2023-12-01] MEDS ORDERED: MORPHINE SULFATE 2 MG INJ ONE (14:52)
[2023-12-01] MEDS ORDERED: ZOFRAN ODT 4 MG ONE (14:52)
[2023-12-01] MEDS: MORPHINE SULFATE 2 MG INJ IM ONE (14:53)
[2023-12-01] MEDS: ZOFRAN ODT 4 MG PO ONE (14:53)
--- NOTE | 2023-12-01 15:10 | XRAY ---
Indication: Constipation. Comparison: None KUB nonacute and nonobstructed with mild diffuse scattered colonic fecal debris and moderate rectal fecal impaction. Solid organs unremarkable., Extensive scattered vascular calcifications throughout. Osseous structures intact with osteopenia, mild degenerative changes, and incidental bilateral penile implants.
[2023-12-01 17:56] VITALS: BP 114/66; PULSE 58; O2SAT 99
== END 2023-12-01 17:59 | disposition home or self-care (01) ==
LOC: ED 13:04
DX: K59.00 Constipation, unspecified (principal); E78.5 Hyperlipidemia, unspecified; I10 Essential (primary) hypertension; E10.9 Type 1 diabetes mellitus without complications; Z79.02 Long term (current) use of antithrombotics/antiplatelets; Z79.4 Long term (current) use of insulin; Z79.899 Other long term (current) drug therapy
CPT/HCPCS: 74018; 96372; 99283; J2270; Q0162

== ENCOUNTER 2023-12-12 19:31 | Emergency (ER) | payer OTHER ==
[2023-12-12 19:45] VITALS: TEMP 96.8
--- NOTE | 2023-12-12 20:36 | ERPHSYRPT ---
- History of Present Illness Time Seen by Provider: 12/12/23 20:33 Patient Subjective Stated Complaint: pt states pressure and burning to rectum for the past months Triage Nursing Assessment: pt came into the er via ambulance; pt was transferred to cot per EMS staff and ER staff; pt is axo x3; c/o rectum pain; pt states 10/10 pain to rectum; pt is yelling out and screaming in pain; stool smear p resent to rectum; coccyx is red and nonblanchable; skin PDW; active bowel sounds in all quads; c/o nausea, denies vomiting; no respiratory distress present; vitals wnl Physician History: 63-year-old male presents to our ED via EMS for evaluation of a burning rectal pain. Patient reports having diarrhea stools. Pain has been ongoing for the past several hours. No trauma no fever. No vomiting. Symptoms are mild to moderate in intensity. No specific worsening or improving factors. Patient voices no other complaints or concerns at this time. Portions of this note were created with voice recognition technology. There may be grammatical, spelling, punctuation or sound alike errors Timing/Duration: today Severity: moderate Modifying Factors: Improves With: nothing Associated Symptoms: denies symptoms Allergies/Adverse Reactions: clindamycin Allergy (Verified 12/01/23 13:07) codeine Allergy (Verified 12/01/23 13:07) levofloxacin [From Levaquin] Allergy (Verified 11/14/20 14:31) Penicillins Allergy (Verified 11/14/20 14:31) Sulfa (Sulfonamide Antibiotics) Allergy (Verified 11/14/20 14:31) Home Medications: Clopidogrel Bisulfate [PLAVIX Tablet] 75 mg PO DAILY 04/27/15 [History] Levothyroxine Sodium 112 Mcg [Synthroid 112 Mcg] 150 mcg PO DAILY 10/11/16 [History] Promethazine HCl 25 mg [Phenergan 25 mg] 25 mg PO Q4H PRN PRN 10/11/16 [History] ondansetron HCL [Zofran] 8 mg PO Q4H PRN PRN 10/11/16 [History] ALPRAZolam [Alprazolam] 1 mg PO DAILY 08/18/20 [History] Aspirin 81 mg PO DAILY 08/18/20 [History] Atorvastatin Calcium [Lipitor] 40 mg PO DAILY 08/18/20 [History] Docusate Sodium 100 mg [Docusate Sodium 100 MG] 100 mg PO BID 11/14/20 [History] Famotidine [Pepcid] 40 mg PO DAILY 11/14/20 [History] Nitroglycerin 0.4 mg SL DAILY PRN 11/14/20 [History] carvediloL [Carvedilol] 12.5 mg PO BID 11/14/20 [History] Acetaminophen 325 mg [Tylenol 325 mg] 650 mg PO Q6HPRN PRN 12/12/23 [History] Acetaminophen 500 mg [Tylenol Extra Strength 500 mg] 1,000 mg PO Q6HPRN PRN 12/12/23 [History] Calcium Carbonate [Calcium] 1,000 mg PO Q4HPRN PRN 12/12/23 [History] Emollient Combination No.119 [Eucerin Advanced Repair] 1 applic TP BID 12/12/23 [History] Ertugliflozin Pidolate [Steglatro] 5 mg PO DAILY 12/12/23 [History] Ezetimibe 10 mg [Zetia 10 MG] 10 mg PO DAILY 12/12/23 [History] Insulin Glargine,Hum.rec.anlog [Insulin Glargine Solostar] 15 unit SQ DAILY 12/12/23 [History] Insulin Lispro [Humalog] 15 unit SQ ACHS 12/12/23 [History] Lidocaine [Aspercreme] 1 each TP DAILY 12/12/23 [History] Oxybutynin Chloride [Oxybutynin Chloride ER] 10 mg PO DAILY 12/12/23 [History] PANTOPRAZOLE 40 mg Tablet [Protonix 40MG Tablet] 40 mg PO BID 12/12/23 [ History] Polyethylene Glycol 3350 [Clearlax] 17 gm PO DAILY 12/12/23 [History] Pramipexole Di-HCl [Pramipexole Dihydrochloride] 1 mg PO HS 12/12/23 [History] Psyllium Husk/Aspartame [Metamucil] 10 gm PO DAILY 12/12/23 [History] Sennosides/Docusate Sodium [Senna Plus 8.6-50 mg Tablet] 1 each PO BID 12/12/23 [History] Sodium Phosphate,Cambria-Dibasic [Fleet Enema] 1 applic RC DAILY PRN 12/12/23 [History] Tamsulosin HCl 0.4 mg [Flomax 0.4 MG] 0.8 mg PO HS 12/12/23 [History] Hx Tetanus, Diphtheria Vaccination/Date Given: Yes Hx Influenza Vaccination/Date Given: Yes Hx Pneumococcal Vaccination/Date Given: Yes Travel Risk - International Travel Have you traveled outside of the country in past 3 weeks: No - Emerging Infectious Disease Are you exhibiting symptoms associated with any current EIDs: No - Review of Systems Constitutional: No Symptoms, No Fever, No Chills Eyes: No Symptoms Ears, Nose, & Throat: No Symptoms Respiratory: No Symptoms, No Cough, No Dyspnea Cardiac: No Symptoms, No Chest Pain, No Edema, No Syncope Abdominal/Gastrointestinal: No Symptoms, No Abdominal Pain, No Nausea, No Vomiting, No Diarrhea Genitourinary Symptoms: No Symptoms, No Dysuria Musculoskeletal: No Symptoms, No Back Pain, No Neck Pain Skin: No Symptoms, No Rash Neurological: No Symptoms, No Dizziness, No Focal Weakness, No Sensory Changes Psychological: No Symptoms Endocrine: No Symptoms Hematologic/Lymphatic: No Symptoms Immunological/Allergic: No Symptoms All Other Systems: Reviewed and Negative - Past Medical History Pertinent Past Medical History: Yes Neurological History: No Pertinent History ENT History: No Pertinent History Cardiac History: Angina, Arrhythmia, Coronary Artery Disease, High Cholesterol, Hypertension Respiratory History: No Pertinent History Endocrine Medical History: Diabetes Type I Musculoskeletal History: Arthritis, Fractures GI Medical History: Irritable Bowel History: No Pertinent History Psycho-Social History: Anxiety Male Reproductive Disorders: No Pertinent History Other Medical History: R GREAT TOE FRACTURE. - Past Surgical History Past Surgical History: Yes Neuro Surgical History: No Pertinent History Cardiac: CABG, Cardiac Catheterization Respiratory: No Pertinent History Gastrointestinal: Appendectomy Genitourinary: No Pertinent History Musculoskeletal: No Pertinent History Male Surgical History: No Pertinent History Other Surgical History: LAZER TREATMENTS IN R EYE, LEFT FEMUR AND RIGHT SHOULDER SURG - Social History Smoking Status: Never smoker Exposure to second hand smoke: No Drug Use: none Patient Lives Alone: No - Social Determinants of Health Will the patient participate in the screening: Declined to provide - Nursing Vital Signs Nursing Vital Signs: Initial Vital Signs Temperature 96.8 F 12/12/23 19:36 Pulse Rate 70 12/12/23 19:36 Respiratory Rate 20 12/12/23 19:36 Blood Pressure 124/51 12/12/23 19:36 O2 Sat by Pulse Oximetry 99 12/12/23 19:36 Pain Scale Pain Intensity 8 - Physical Exam General Appearance: no apparent distress, alert Eye Exam: PERRL/EOMI, eyes nml inspection Ears, Nose, Throat Exam: normal ENT inspection, moist mucous membranes Neck Exam: normal inspection, full range of motion Respiratory Exam: normal breath sounds, lungs clear, No respiratory distress Cardiovascular Exam: regular rate/rhythm, normal heart sounds, normal peripheral pulses Gastrointestinal/Abdomen Exam: soft, normal bowel sounds, other (Diarrhea stool. No gross blood.), No tenderness, No mass Back Exam: normal inspection, normal range of motion, No CVA tenderness, No vertebral tenderness Extremity Exam: normal inspection, normal range of motion, pelvis stable Neurologic Exam: alert, oriented x 3, cooperative, normal mood/affect, sensation nml, No motor deficits Skin Exam: normal color, warm, dry, No rash Lymphatic Exam: No adenopathy SpO2 Interpretation: normal SpO2: 99 O2 Delivery: Room Air - Course Nursing assessment & vital signs reviewed: Yes - CT Exams Abdomen/Pelvis CT Interpretation: Tele-radiologist Report (Fecal rectal impaction, new punctate gallstone, stable small renal cyst, chronic bony findings. Penile implant) Ordered Tests: Active Orders 24 hr Category Date Time Status IV Insertion STAT Care 12/12/23 20:27 Active ABDOMEN AND PELVIS W CONTRAST [CT] Stat Exams 12/12/23 20:30 Taken CBC W DIFF Stat Lab 12/12/23 20:30 Completed CMP Stat Lab 12/12/23 20:30 Completed TROPONIN Q4H Lab 12/12/23 20:30 Completed TROPONIN Q4H Lab 12/13/23 00:30 Completed TROPONIN Q4H Lab 12/13/23 04:30 Ordered UA W/RFX UR CULTURE Stat Lab 12/12/23 20:27 Ordered Medication Summary Generic Name Dose Route Start Last Admin Trade Name Freq PRN Reason Stop Dose Admin Sodium Chloride 1,000 mls @ 50 mls/hr 12/12/23 20:30 12/12/23 20:50 Sodium Chloride 0.9% 1000 Ml IV 01/11/24 20:29 Not Given .Q20H KARI Discontinued Medications Generic Name Dose Route Start Last Admin Trade Name Luchoq PRN Reason Stop Dose Admin Hydromorphone HCl 0.5 mg 12/12/23 22:52 12/12/23 23:29 Hydromorphone 1 Mg/1ml Inj IV 12/12/23 22:53 0.5 mg STAT ONE Administration Hydromorphone HCl Confirm 12/12/23 23:23 Hydromorphone 1 Mg/1ml Inj Administered 12/12/23 23:24 Dose 1 mg .ROUTE .STK-MED ONE Sodium Chloride 1,000 mls @ 999 mls/hr 12/12/23 22:52 12/13/23 00:12 Sodium Chloride 0.9% 1000 Ml IV 12/12/23 23:52 Infused .Q1H1M STA Infusion Lidocaine HCl Confirm 12/13/23 00:26 Lidocaine Hcl 20 Mg/Ml Jelly Uro-Jet Administered 12/13/23 00:27 Dose 200 mg .ROUTE .STK-MED ONE Lidocaine HCl 200 mg 12/13/23 00:58 Lidocaine Hcl 20 Mg/Ml Jelly Uro-Jet TOP 12/13/23 00:59 STAT ONE Morphine Sulfate 4 mg 12/12/23 20:33 12/12/23 20:51 Morphine Sulfate 4 Mg/Ml Injection IV 12/12/23 20:34 4 mg STAT ONE Administration Morphine Sulfate Confirm 12/12/23 20:51 Morphine Sulfate 4 Mg/Ml Injection Administered 12/12/23 20:52 Dose 4 mg .ROUTE .STK-MED ONE Ondansetron HCl 4 mg 12/12/23 20:33 12/12/23 20:50 Ondansetron Hcl 4 Mg/2 Ml Vial IV 12/12/23 20:34 Not Given STAT ONE Ondansetron HCl 4 mg 12/12/23 22:53 12/12/23 23:29 Ondansetron Hcl 4 Mg/2 Ml Vial IV 12/12/23 22:54 4 mg STAT ONE Administration Ondansetron HCl Confirm 12/12/23 23:23 Ondansetron Hcl 4 Mg/2 Ml Vial Administered 12/12/23 23:24 Dose 4 mg .ROUTE .STK-MED ONE Lab/Rad Data: Laboratory Result Diagrams 12/12/23 20:30 10/22/24 20:30 Laboratory Results 12/13/23 12/12/23 12/12/23 Range/Units 00:30 20:30 20:30 WBC (4.23-9.07) x10^3/uL RBC (4.63-6.08) x10^6/uL Hgb (13.7-17.5) g/dL Hct (40.1-51.0) % MCV (79.0-92.2) fL MCH (25.7-32.2) pg MCHC (32.3-36.5) g/dL RDW (11.6-14.4) % Plt Count (163-337) x10^3/uL MPV (9.4-12.4) fL Gran % (34.0-67.9) % Immature Gran % (Auto) (0.001-0.429) % Nucleat RBC Rel Count (0.00-0.2) % Eos # (Auto) (0.04-0.54) x10^3/uL Immature Gran # (Auto) (0.001-0.031) x10^3u/L Absolute Lymphs (auto) (1.32-3.57) x10^3/uL Absolute Monos (auto) (0.30-0.82) x10^3/uL Absolute Nucleated RBC (0.00-0.012) x10^3u/L Lymphocytes % (21.8-53.1) % Monocytes % (5.3-12.2) % Eosinophils % (0.8-7.0) % Basophils % (0.2-1.2) % Absolute Granulocytes (1.78-5.38) x10^3/uL Basophils # (0.01-0.08) x10^3/uL Sodium 136 (135-145) mmol/L Potassium 4.7 (3.5-5.1) mmol/L Chloride 103 (98-107) mmol/L Carbon Dioxide 23 (22-30) mmol/L Anion Gap 15.6 H (5-15) MEQ/L BUN 21 H (9-20) mg/dL Creatinine 1.33 H (0.66-1.25) mg/dL Estimated GFR 59.3 ML/MIN Glucose 129 H (74-106) mg/dL Calcium 9.2 (8.4-10.2) mg/dL Total Bilirubin 0.70 (0.2-1.3) mg/dL AST 20 (17-59) U/L ALT 13 (0-50) U/L Alkaline Phosphatase 68 (38-126) U/L Troponin I < 0.012 < 0.012 (0.000-0.033) ng/mL Serum Total Protein 6.4 (6.3-8.2) g/dL Albumin 3.4 L (3.5-5.0) g/dL 12/12/23 Range/Units 20:30 WBC 9.2 H (4.23-9.07) x10^3/uL RBC 4.19 L (4.63-6.08) x10^6/uL Hgb 13.0 L (13.7-17.5) g/dL Hct 39.5 L (40.1-51.0) % MCV 94.3 H (79.0-92.2) fL MCH 31.0 (25.7-32.2) pg MCHC 32.9 (32.3-36.5) g/dL RDW 14.6 H (11.6-14.4) % Plt Count 326 (163-337) x10^3/uL MPV 9.9 (9.4-12.4) fL Gran % 78.0 H (34.0-67.9) % Immature Gran % (Auto) 0.3 (0.001-0.429) % Nucleat RBC Rel Count 0.0 (0.00-0.2) % Eos # (Auto) 0.05 (0.04-0.54) x10^3/uL Immature Gran # (Auto) 0.03 (0.001-0.031) x10^3u/L Absolute Lymphs (auto) 1.29 L (1.32-3.57) x10^3/uL Absolute Monos (auto) 0.65 (0.30-0.82) x10^3/uL Absolute Nucleated RBC 0.00 (0.00-0.012) x10^3u/L Lymphocytes % 14.0 L (21.8-53.1) % Monocytes % 7.1 (5.3-12.2) % Eosinophils % 0.5 L (0.8-7.0) % Basophils % 0.1 L (0.2-1.2) % Absolute Granulocytes 7.17 H (1.78-5.38) x10^3/uL Basophils # 0.01 (0.01-0.08) x10^3/uL Sodium (135-145) mmol/L Potassium (3.5-5.1) mmol/L Chloride (98-107) mmol/L Carbon Dioxide (22-30) mmol/L Anion Gap (5-15) MEQ/L BUN (9-20) mg/dL Creatinine (0.66-1.25) mg/dL Estimated GFR ML/MIN Glucose (74-106) mg/dL Calcium (8.4-10.2) mg/dL Total Bilirubin (0.2-1.3) mg/dL AST (17-59) U/L ALT (0-50) U/L Alkaline Phosphatase (38-126) U/L Troponin I (0.000-0.033) ng/mL Serum Total Protein (6.3-8.2) g/dL Albumin (3.5-5.0) g/dL - Progress Progress: improved Progress Note: 63-year-old male presents to our ED with rectal pain. CT scan reveals fecal rectal impaction. Patient had 2 different nurses perform disimpaction at 2 different times. The first time was stopped due to pain and discomfort. Patient received Dilaudid pain medication. Pain improved. Second nurse attempted a second time. Some stool expressed. However likely not completely disimpacted. Patient now is much more comfortable. No active pain. We will discharge patient back to [facility]. Patient to resume laxative at the custodial with primary care follow-up. Laboratory workup shows no significant acute findings. No indication for further workup at this time. We will discharge patient to [facility]. Plan of care discussed with patient. He voices no other complaints or concerns at this time. Portions of this note were created with voice recognition technology. There may be grammatical, spelling, punctuation or sound alike errors Complexity of problem addressed is moderate acute complicated. No critical care time. Complex of data reviewed and analyzed is moderate. Test ordered chest reviewed results analyzed and correlated clinically with history and physical exam. Risk of complication and or risk of morbidity/mortality of patient management is low. Vital stable. Time spent to discharge patient approximately 20 minutes. Plan of care established for shared decision making. No social determinants of health present to impede follow-up. Portions of this note were created with voice recognition technology. There may be grammatical, spelling, punctuation or sound alike errors 12/13/23 01:31 Counseled pt/family regarding: lab results, diagnosis, need for follow-up, rad results - Departure Departure Disposition: Home Clinical Impression: Fecal impaction in rectum, Renal cyst, Punctate gallstone Condition: Stable Critical Care Time: No Referrals: VINCE FONG [Primary Care Provider] - Follow up/PCP as directed Additional Instructions: Discharge/Care Plan ABRANOMAR Zee was seen on 12/13/23 in the Emergency Room. The patient was counseled regarding Diagnosis,Lab results, Imaging studies, need for follow up and when to return to the Emergency Room. Prescriptions given: Discharge Note I have spoken with the patient and/or caregivers. I have explained the patient's condition, diagnosis and treatment plan based on the information available to me at this time. I have answered the patient's and/or caregiver's questions and addressed any concerns. The patient and/or caregivers have as good understanding of the patient's diagnosis, condition and treatment plan as can be expected at this point. The vital signs have been stable. The patient's condition is stable and appropriate for discharge from the emergency department. The patient will pursue further outpatient evaluation with the primary care physician or other designated or consulting physician as outlined in the discharge instructions. The patient and/or caregivers are agreeable to this plan of care and follow-up instructions have been explained in detail. The patient and/or caregivers have received these instruction. The patient/and or caregivers are aware that any significant change in condition or worsening of symptoms should prompt an immediate return to this or the closest emergency department or call 911.
[2023-12-12 20:41] LABS: Absolute Neutrophil Ct (ANC) 7.17 x10^3/uL (1.78-5.38); BASOPHIL % 0.1 % (0.2-1.2); Basophil (Absolute #) 0.01 x10^3/uL (0.01-0.08); Eosinophil % 0.5 % (0.8-7.0); Eosinophil (Absolute #) 0.05 x10^3/uL (0.04-0.54); Hematocrit 39.5 % (40.1-51.0); IMMATURE GRAN # 0.03 x10^3u/L (0.001-0.031); IMMATURE GRAN % 0.3 % (0.001-0.429); Lymphocyte (Absolute #) 1.29 x10^3/uL (1.32-3.57); Mean Cell Volume 94.3 fL (79.0-92.2); Mean Corpuscular Hgb Concent. 32.9 g/dL (32.3-36.5); Mean Platelet Volume 9.9 fL (9.4-12.4); Monocyte (Absolute #) 0.65 x10^3/uL (0.30-0.82); Monocytes % 7.1 % (5.3-12.2); Platelet Count 326 x10^3/uL (163-337); Red Blood Count 4.19 x10^6/uL (4.63-6.08); Red Cell Distribution Width 14.6 % (11.6-14.4); White Blood Count 9.2 x10^3/uL (4.23-9.07)
[2023-12-12] MEDS: Sodium Chloride 0.9% 1000 ML 1,000 ML IV SCH (20:50)
[2023-12-12] MEDS: Zofran 4 MG/2 ML VIAL IV ONE ×2 (20:50→23:29)
[2023-12-12] MEDS ORDERED: MORPHINE SULFATE 4 MG INJ ONE (20:51)
[2023-12-12] MEDS: MORPHINE SULFATE 4 MG INJ IV ONE (20:51)
[2023-12-12 20:59] LABS: ALBUMIN 3.4 g/dL (3.5-5.0); ANION GAP 15.6 MEQ/L (5-15); BILIRUBIN,TOTAL 0.7 mg/dL (0.2-1.3); Calcium 9.2 mg/dL (8.4-10.2); Creatinine 1 1.33 mg/dL (0.66-1.25); EST GLOMERULAR FILTRATION RATE 59.3 ML/MIN; Potassium 4.7 mmol/L (3.5-5.1); Total Protein 6.4 g/dL (6.3-8.2)
[2023-12-12] MEDS ORDERED: Sodium Chloride 0.9% 1000 ML 1,000 ML ONE (22:54)
[2023-12-12] MEDS: Sodium Chloride 0.9% 1000 ML 1,000 ML IV STA (22:56)
[2023-12-12] MEDS ORDERED: Zofran 4 MG/2 ML VIAL ONE (23:23)
[2023-12-12] MEDS ORDERED: Hydromorphone 1 mg/ml Injection ONE (23:23)
[2023-12-12 23:28] VITALS: RESP 18
[2023-12-12] MEDS: Hydromorphone 1 mg/ml Injection IV ONE (23:29)
[2023-12-13] MEDS ORDERED: XYLOCAINE 2% Uro-Jet ONE (00:26)
[2023-12-13] MEDS ORDERED: XYLOCAINE 2% Uro-Jet TOP ONE (00:58)
[2023-12-13 02:16] VITALS: O2SAT 97
[2023-12-13 02:40] VITALS: BP 146/38; PULSE 70
--- NOTE | 2023-12-13 08:51 | XRAY ---
Indication: Pain. Multiple contiguous axial images obtained through the abdomen and pelvis using 80 cc Isovue 370 contrast. Comparison: June 25, 2021 Lung bases again demonstrates scattered subsegmental atelectasis/scarring and tiny right base calcified granuloma. No infiltrate or effusion. Heart not enlarged. Stomach is now markedly distended with food/fluid either from recent meal versus gastric outlet obstruction versus gastroparesis. Noncontrasted bowel loops appear nonobstructed. Again moderate rectal fecal impaction. Gallbladder demonstrates new punctate stone. Mild distended urinary bladder now demonstrates mild circumferential wall thickening either incomplete distention versus cystitis. Again incidental small left renal cyst and tiny splenic calcified granulomas. No free fluid/air. Remaining liver, gallbladder, pancreas, spleen, adrenal glands, kidneys, ureters, and bladder are unremarkable. Again moderate scattered arteriosclerotic calcifications. No AAA or pathologic retroperitoneal lymphadenopathy. Osseous structures intact again with osteopenia, degenerative changes throughout spine/both hips, L1 Schmorl node, defect left iliac crest from bone graft, incompletely visualized right humeral intramedullary nori, and partially visualized penile implants. Impression: 1. Markedly food/fluid distended stomach either from recent meal versus gastric outlet obstruction versus gastroparesis. 2. Moderate rectal fecal impaction. 3. New punctate gallstone better evaluated with sonogram if clinically warranted. 4. Urinary bladder circumferential wall thickening either incomplete distention versus cystitis. 5. Again chronic findings including left renal cyst, arteriosclerotic disease, chronic bony findings, penile implants, and old granulomatous disease.
== END 2023-12-13 02:41 | disposition home or self-care (01) ==
LOC: ED 19:31
DX: K56.41 Fecal impaction (principal); N28.1 Cyst of kidney, acquired; K80.80 Other cholelithiasis without obstruction; K62.89 Other specified diseases of anus and rectum; E78.5 Hyperlipidemia, unspecified; I10 Essential (primary) hypertension; E10.9 Type 1 diabetes mellitus without complications; Z79.02 Long term (current) use of antithrombotics/antiplatelets; Z79.4 Long term (current) use of insulin; Z79.84 Long term (current) use of oral hypoglycemic drugs; Z79.899 Other long term (current) drug therapy
CPT/HCPCS: 36000; 36415; 74177; 80053; 84484; 85025; 96360; 96374; 96375; 99285; J1170; J2270; J2405

== ENCOUNTER 2024-02-14 16:00 | Emergency (ER) | payer OTHER ==
[2024-02-14 16:09] VITALS: PULSE 70; TEMP 98.7
--- NOTE | 2024-02-14 16:53 | ERPHSYRPT ---
- History of Present Illness Time Seen by Provider: 02/14/24 16:51 Source: patient Exam Limitations: no limitations Patient Subjective Stated Complaint: pt is at the [facility] and reports being constipated and wanted an enema however, the nursing staff reports that he has had 2 large bowel movements with one being yesterday and one being today, pt was transfered from a [place] facility due to him ordering the nursing staff to give various treatments although the doctor hasn't ordered Triage Nursing Assessment: Pt brought to the ER by EMS, vitals wnl, rates pain as 8/10 at the rectum, pulses normal, skin n/w/d, last bowel movement today whi ch nurses report as large and pt reports as small, bowel sounds heard in all 4 quadrants, no difficulty breathing, doesn't appear to be in any distress Physician History: pt is at the [facility] and reports being constipated and wanted an enema however, the nursing staff reports that he has had 2 large bowel movements with one being yesterday and one being today, pt was transfered from a [place] facility due to him ordering the nursing staff to give various treatments although the doctor hasn't ordered Associated Symptoms: denies symptoms Allergies/Adverse Reactions: clindamycin Allergy (Verified 02/14/24 16:09) codeine Allergy (Verified 02/14/24 16:09) levofloxacin [From Levaquin] Allergy (Verified 02/14/24 16:09) Penicillins Allergy (Verified 02/14/24 16:09) Sulfa (Sulfonamide Antibiotics) Allergy (Verified 02/14/24 16:09) Home Medications: Clopidogrel Bisulfate [PLAVIX Tablet] 75 mg PO DAILY 04/27/15 [History] Levothyroxine Sodium 112 Mcg [Synthroid 112 Mcg] 150 mcg PO DAILY 10/11/16 [History] Promethazine HCl 25 mg [Phenergan 25 mg] 25 mg PO Q4H PRN PRN 10/11/16 [History] ondansetron HCL [Zofran] 8 mg PO Q4H PRN PRN 10/11/16 [History] ALPRAZolam [Alprazolam] 1 mg PO DAILY 08/18/20 [History] Aspirin 81 mg PO DAILY 08/18/20 [History] Atorvastatin Calcium [Lipitor] 40 mg PO DAILY 08/18/20 [History] Docusate Sodium 100 mg [Docusate Sodium 100 MG] 100 mg PO BID 11/14/20 [History] Famotidine [Pepcid] 40 mg PO DAILY 11/14/20 [History] Nitroglycerin 0.4 mg SL DAILY PRN 11/14/20 [History] carvediloL [Carvedilol] 12.5 mg PO BID 11/14/20 [History] Acetaminophen 325 mg [Tylenol 325 mg] 650 mg PO Q6HPRN PRN 12/12/23 [History] Acetaminophen 500 mg [Tylenol Extra Strength 500 mg] 1,000 mg PO Q6HPRN PRN 12/12/23 [History] Calcium Carbonate [Calcium] 1,000 mg PO Q4HPRN PRN 12/12/23 [History] Emollient Combination No.119 [Eucerin Advanced Repair] 1 applic TP BID 12/12/23 [History] Ertugliflozin Pidolate [Steglatro] 5 mg PO DAILY 12/12/23 [History] Ezetimibe 10 mg [Zetia 10 MG] 10 mg PO DAILY 12/12/23 [History] Insulin Glargine,Hum.rec.anlog [Insulin Glargine Solostar] 15 unit SQ DAILY 12/12/23 [History] Insulin Lispro [Humalog] 15 unit SQ ACHS 12/12/23 [History] Lidocaine [Aspercreme] 1 each TP DAILY 12/12/23 [History] Oxybutynin Chloride [Oxybutynin Chloride ER] 10 mg PO DAILY 12/12/23 [History] PANTOPRAZOLE 40 mg Tablet [Protonix 40MG Tablet] 40 mg PO BID 12/12/23 [History] Polyethylene Glycol 3350 [Clearlax] 17 gm PO DAILY 12/12/23 [History] Pramipexole Di-HCl [Pramipexole Dihydrochloride] 1 mg PO HS 12/12/23 [History] Psyllium Husk/Aspartame [Metamucil] 10 gm PO DAILY 12/12/23 [History] Sennosides/Docusate Sodium [Senna Plus 8.6-50 mg Tablet] 1 each PO BID 12/12/23 [History] Sodium Phosphate,Hawkins-Dibasic [Fleet Enema] 1 applic RC DAILY PRN 12/12/23 [History] Tamsulosin HCl 0.4 mg [Flomax 0.4 MG] 0.8 mg PO HS 12/12/23 [History] Hx Tetanus, Diphtheria Vaccination/Date Given: Yes Hx Influenza Vaccination/Date Given: Yes Hx Pneumococcal Vaccination/Date Given: Yes Travel Risk - International Travel Have you traveled outside of the country in past 3 weeks: No - Emerging Infectious Disease Are you exhibiting symptoms associated with any current EIDs: Yes Symptoms: Abdominal Pain - Review of Systems Constitutional: No Fever, No Chills Eyes: No Symptoms Ears, Nose, & Throat: No Symptoms Respiratory: No Cough, No Dyspnea Cardiac: No Chest Pain, No Edema, No Syncope Abdominal/Gastrointestinal: Constipation, No Abdominal Pain, No Nausea, No Vomiting, No Diarrhea Genitourinary Symptoms: No Dysuria Musculoskeletal: No Back Pain, No Neck Pain Skin: No Rash Neurological: No Dizziness, No Focal Weakness, No Sensory Changes Psychological: No Symptoms Endocrine: No Symptoms All Other Systems: Reviewed and Negative - Past Medical History Pertinent Past Medical History: Yes Neurological History: No Pertinent History ENT History: No Pertinent History Cardiac History: Angina, Arrhythmia, Coronary Artery Disease, High Cholesterol, Hypertension Respiratory History: No Pertinent History Endocrine Medical History: Diabetes Type I Musculoskeletal History: Arthritis, Fractures GI Medical History: Irritable Bowel History: No Pertinent History Psycho-Social History: Anxiety Male Reproductive Disorders: No Pertinent History Other Medical History: R GREAT TOE FRACTURE. - Past Surgical History Past Surgical History: Yes Neuro Surgical History: No Pertinent History Cardiac: CABG, Cardiac Catheterization Respiratory: No Pertinent History Gastrointestinal: Appendectomy Genitourinary: No Pertinent History Musculoskeletal: No Pertinent History Male Surgical History: No Pertinent History Other Surgical History: LAZER TREATMENTS IN R EYE, LEFT FEMUR AND RIGHT SHOULDER SURG - Social History Smoking Status: Never smoker Exposure to second hand smoke: No Drug Use: none Patient Lives Alone: No - Social Determinants of Health Will the patient participate in the screening: Yes Do you worry about a steady place to live?: No Do you have any problems with any of the following?: No known problems In the past 12 months,have you had to go without utilities?: No Transportation Issues: No Has anyone in your support network made you feel unsafe?: No Have you or anyone in your house had to go without enough: No - Nursing Vital Signs Nursing Vital Signs: Initial Vital Signs Temperature 98.7 F 02/14/24 16:01 Pulse Rate 70 02/14/24 16:01 Blood Pressure 126/62 02/14/24 16:01 O2 Sat by Pulse Oximetry 97 02/14/24 16:01 Pain Scale Pain Intensity 8 - Physical Exam General Appearance: no apparent distress, alert Eye Exam: PERRL/EOMI, eyes nml inspection Ears, Nose, Throat Exam: normal ENT inspection, TMs normal, pharynx normal, moist mucous membranes Neck Exam: normal inspection, non-tender, supple, full range of motion Respiratory Exam: normal breath sounds, lungs clear, No respiratory distress Cardiovascular Exam: regular rate/rhythm, normal heart sounds, normal peripheral pulses Gastrointestinal/Abdomen Exam: soft, normal bowel sounds, No tenderness, No mass Back Exam: normal inspection, normal range of motion, No CVA tenderness, No vertebral tenderness Extremity Exam: normal inspection, normal range of motion, pelvis stable Neurologic Exam: alert, oriented x 3, cooperative, normal mood/affect, nml cerebellar function, nml station & gait, sensation nml, No motor deficits Skin Exam: normal color, warm, dry, No rash Lymphatic Exam: No adenopathy SpO2: 97 - Course Nursing assessment & vital signs reviewed: Yes - Radiology Exams Abdomen X-ray Interpretation: Interpreted by me, Reviewed by me, Negative Ordered Tests: Active Orders 24 hr Category Date Time Status KUB Stat Exams 02/14/24 16:22 Taken Medication Summary Discontinued Medications Generic Name Dose Route Start Last Admin Trade Name Raquel PRN Reason Stop Dose Admin Hydrocortisone 30 gm 02/14/24 17:11 02/14/24 17:13 Hydrocortisone 2.5% 30gm Cream Tube TP 02/14/24 17:12 30 gm STAT ONE Administration - Progress Progress: unchanged Counseled pt/family regarding: diagnosis, need for follow-up, rad results Medical Desision Making - Diagnostic Testing Diagnostic test were ordered, analyzed, and reviewed by me: Yes Radiological Interpretation: Interpreted by me, Reviewed by me - Risk of complications Minimal Risk: Minimal risk of morbidity - Departure Departure Disposition: Extended Care Facility Clinical Impression: Constipation Qualifiers: Constipation type: chronic idiopathic constipation Qualified Code(s): K59.04 - Chronic idiopathic constipation Condition: Stable Critical Care Time: No Referrals: VANNA BUTTS OF [Primary Care Provider] - Follow up/PCP as directed Instructions: Constipation, Adult (DC) Additional Instructions: Discharge/Care Plan OMAR MCKENNA was seen on 02/14/24 in the Emergency Room. The patient was counseled regarding Diagnosis,Lab results, Imaging studies, need for follow up and when to return to the Emergency Room. Prescriptions given: Discharge Note I have spoken with the patient and/or caregivers. I have explained the patient's condition, diagnosis and treatment plan based on the information available to me at this time. I have answered the patient's and/or caregiver's questions and addressed any concerns. The patient and/or caregivers have as good understanding of the patient's diagnosis, condition and treatment plan as can be expected at this point. The vital signs have been stable. The patient's condition is stable and appropriate for discharge from the emergency department. The patient will pursue further outpatient evaluation with the primary care physician or other designated or consulting physician as outlined in the discharge instructions. The patient and/or caregivers are agreeable to this plan of care and follow-up instructions have been explained in detail. The patient and/or caregivers have received these instruction. The patient/and or caregivers are aware that any significant change in condition or worsening of symptoms should prompt an immediate return to this or the closest emergency department or call 911. OMAR MCKENNA was seen on 02/14/24 n the Emergency Room. At that time you were treated for an emergent condition, during your visit Laboratory, Radiology and/or other procedures may have been ordered. It is very important that you follow-up with your Primary Care Physician [place] within the next 24-48 hours to review your Emergency Room visit and the final results of testing that was ordered. Some test results such as Urine Cultures, Blood Cultures, and other cultures if ordered will not be finalized for 24-48 hours. If you do not have a Primary Care Provider please call the medical records department at [phone] ext [phone] to obtain a copy of your results or you may sign into our patient portal to obtain these results by visiting us @ [email or web address] and completing the following steps: 1. Click on the Patient Portal link 2. Click the Patient Self Enrollment Link to complete the enrollment form and entering your 3. Once the enrollment form is completed you will receive an email with a temporary ID and password at the email address you provided. 4. Next choose a user name and password. Your user name must be at least 4 characters long and your password must be at least 4 characters long. 5. Choose a security question from the list and provide your answer to the question. If you already have signed into the Health Portal you may access your Health Care Information 12/09 by the following steps: 1. Login to our website @ [email or web address] 2. Enter your original user name and password. FAQS The [facility] Health Portal is an online tool that contains your Lab Results, Radiology Reports, Visit History, Discharge Instructions and Health Summary Lab and Radiology Results will not be available for 72 hours on the portal. The Portal is a secure site, passwords are encryted and URLs are re-written so they cannot be copied and pasted. You and authorized family members are the only ones who can access your Portal. Also there is a timeout feature that protects your information if you leave the Portal page open. If you have technical difficulty please use the Contact Us link on the page this will allow you to submit any questions you have regarding the Portal or you may contact the Medical Record Department at [phone]. Prescriptions: Hydrocortisone 2.5% 30 gm [Anusol-Hc 2.5% Cream 30 gm] 30 gm TP BID #30 cm Metoclopramide HCl 10 mg [Reglan 10 MG] 5 mg PO TIDAC #30 tablet
[2024-02-14] MEDS: ANUSOL-HC 2.5% CREAM 30 GM TP ONE (17:13)
--- NOTE | 2024-02-14 18:17 | XRAY ---
Indication: Constipation. Comparison: December 01, 2023 KUB again demonstrates mild diffuse colonic fecal debris with mild rectal fecal impaction. No focal bowel dilatation, obstruction, or free air. Solid organs unremarkable. Again extensive scattered vascular calcifications, osteopenia, bony degenerative changes, and incidental bilateral penal implants.
[2024-02-14 21:10] VITALS: BP 99/47; RESP 18; O2SAT 96
== END 2024-02-14 21:27 | disposition home or self-care (01) ==
LOC: ED 16:00
DX: K59.04 Chronic idiopathic constipation (principal)
CPT/HCPCS: 74018; 99283; A9270-GY